=== PATIENT | male | born 1990 | race Two or more races ===

== ENCOUNTER 2019-01-28 11:57 | Inpatient (IN) | payer OTHER ==
[~2019-01-28] VITALS: Ht 157.5 cm; Wt 68.2 kg
[2019-01-28 12:18] LABS: BILIRUBIN,URINE SMALL (NEG); CLARITY,URINE CLEAR; COLOR,URINE AMBER; NITRITE,URINE NEGATIVE (NEG); PROTEIN,URINE 30 mg/dL (NEG-TRACE); UROBILINOGEN,URINE 0.2 mg/dL (0.2 mg/dL)
[2019-01-28 12:24] LABS: BASO % 1 % (0-3); EOS % 0 % (0-3); HEMATOCRIT 46.4 % (39.0-53.0); HEMOGLOBIN 16.1 g/dL (13.0-17.5); LYMPH % 28 % (24-48); MEAN CORPUSCULAR HEMOGLOBIN 29 pg (25-35); MEAN CORPUSCULAR HGB CONC 35 g/dL (31-37); MEAN CORPUSCULAR VOLUME 82 fL (79-100); MONO # 0.5 x10^3/uL (0.0-1.1); MONO % 14 % (0-9); NEUT % 58 % (31-73); PLATELET COUNT 114 x10^3/uL (140-400); RED BLOOD COUNT 5.66 x10^6/uL (4.30-5.70); RED CELL DISTRIBUTION WIDTH 12.5 % (11.5-14.5); WHITE BLOOD COUNT 3.5 x10^3/uL (4.0-11.0)
--- NOTE | 2019-01-28 12:27 | PHYS DOC ---
Past Medical History Past Medical History: No Pertinent History Past Surgical History: No Surgical History Alcohol Use: Occasionally Drug Use: None Adult General Chief Complaint Chief Complaint: ABDOMINAL PAIN HPI HPI Patient is a 28 year old male presented to ER today for evaluation of right lower abdominal pain for 4 days. HE does feel weak, he had not eaten anything today. Patient denies any fever. Patient denies any nausea vomiting. he had no previous history of kidney stone, he had no operation. Patient is not allergic to anything. Patient is not on medication Review of Systems Review of Systems Constitutional: Denies fever or chills [] Eyes: Denies change in visual acuity, redness, or eye pain [] HENT: Denies nasal congestion or sore throat [] Respiratory: Denies cough or shortness of breath [] Cardiovascular: No additional information not addressed in HPI [] GI: Positive for abdominal pain, NO nausea, vomiting, bloody stools or diarrhea [] : Denies dysuria or hematuria [] Musculoskeletal: Denies back pain or joint pain [] Integument: Denies rash or skin lesions [] Neurologic: Denies headache, focal weakness or sensory changes [] Endocrine: Denies polyuria or polydipsia [] All other systems were reviewed and found to be within normal limits, except as documented in this note. Current Medications Current Medications Current Medications Medications (Trade) Dose Ordered Sig/Nancy Start Time Stop Time Status Last Admin Dose Admin Info (CONTRAST GIVEN -- Rx MONITORING) 1 each PRN DAILY PRN 01/28/19 13:00 01/30/19 12:59 Iohexol (Omnipaque 300 Mg/ml) 75 ml 1X ONCE 01/28/19 12:45 01/28/19 12:46 DC 01/28/19 12:56 75 ML Piperacillin Sod/ Tazobactam Sod 3.375 gm/Sodium Chloride 50 ml @ 100 mls/hr 1X ONCE 01/28/19 12:30 01/28/19 12:59 DC 01/28/19 12:42 100 MLS/HR Sodium Chloride 1,000 ml @ 1,000 mls/hr 1X ONCE 01/28/19 12:45 01/28/19 13:44 DC 01/28/19 12:44 1,000 MLS/HR Allergies Allergies Allergies Coded Allergies Type Severity Reaction Last Updated Verified No Known Drug Allergies 01/28/19 No Physical Exam Physical Exam Constitutional: Well developed, well nourished, no acute distress, non-toxic appearance. [] HENT: Normocephalic, atraumatic, bilateral external ears normal, oropharynx moist, no oral exudates, nose normal. [] Eyes: PERRLA, EOMI, conjunctiva normal, no discharge. [] Neck: Normal range of motion, no tenderness, supple, no stridor. [] Cardiovascular:Heart rate regular rhythm, no murmur [] Lungs & Thorax: Bilateral breath sounds clear to auscultation [] Abdomen: Bowel sounds normal, soft, There is tenderness to palpation periumbilical area, RLQ and suprapubic area, no masses, no pulsatile masses. [] Skin: Warm, dry, no erythema, no rash. [] Back: No tenderness, no CVA tenderness. [] Extremities: No tenderness, no cyanosis, no clubbing, ROM intact, no edema. [] Neurologic: Alert and oriented X 3, normal motor function, normal sensory function, no focal deficits noted. [] Psychologic: Affect normal, judgement normal, mood normal. [] Current Patient Data Vital Signs Vital Signs Date Time Temp Pulse Resp B/P (MAP) Pulse Ox O2 Delivery O2 Flow Rate FiO2 01/28/19 12:58 92 110/64 (79) 99 Room Air 01/28/19 12:18 99.1 18 99.1 Lab Values Laboratory Tests Test 01/28/19 12:10 01/28/19 12:12 Urine Collection Type Unknown Urine Color Genevieve Urine Clarity Clear Urine pH 6.0 Urine Specific [place] >=1.030 Urine Protein 30 mg/dL (NEG-TRACE) Urine Glucose (UA) Negative mg/dL (NEG) Urine Ketones (Stick) >=80 mg/dL (NEG) Urine Blood Negative (NEG) Urine Nitrite Negative (NEG) Urine Bilirubin Small (NEG) Urine Urobilinogen Dipstick 0.2 mg/dL (0.2 mg/dL) Urine Leukocyte Esterase Negative (NEG) Urine RBC 0 /HPF (0-2) Urine WBC 0 /HPF (0-4) Urine Bacteria 0 /HPF (0-FEW) White Blood Count 3.5 x10^3/uL (4.0-11.0) L Red Blood Count 5.66 x10^6/uL (4.30-5.70) Hemoglobin 16.1 g/dL (13.0-17.5) Hematocrit 46.4 % (39.0-53.0) Mean Corpuscular Volume 82 fL (79-100) Mean Corpuscular Hemoglobin 29 pg (25-35) Mean Corpuscular Hemoglobin Concent 35 g/dL (31-37) Red Cell Distribution Width 12.5 % (11.5-14.5) Platelet Count 114 x10^3/uL (140-400) L Neutrophils (%) (Auto) 58 % (31-73) Lymphocytes (%) (Auto) 28 % (24-48) Monocytes (%) (Auto) 14 % (0-9) H Eosinophils (%) (Auto) 0 % (0-3) Basophils (%) (Auto) 1 % (0-3) Neutrophils # (Auto) 2.0 x10^3/uL (1.8-7.7) Lymphocytes # (Auto) 1.0 x10^3/uL (1.0-4.8) Monocytes # (Auto) 0.5 x10^3/uL (0.0-1.1) Eosinophils # (Auto) 0.0 x10^3/uL (0.0-0.7) Basophils # (Auto) 0.0 x10^3/uL (0.0-0.2) Sodium Level 137 mmol/L (136-145) Potassium Level 3.7 mmol/L (3.5-5.1) Chloride Level 98 mmol/L (98-107) Carbon Dioxide Level 28 mmol/L (21-32) Anion Gap 11 (6-14) Blood Urea Nitrogen 18 mg/dL (8-26) Creatinine 1.4 mg/dL (0.7-1.3) H Estimated GFR (Cockcroft-Gault) 60.8 BUN/Creatinine Ratio 13 (6-20) Glucose Level 82 mg/dL (70-99) Calcium Level 8.9 mg/dL (8.5-10.1) Total Bilirubin 1.0 mg/dL (0.2-1.0) Aspartate Amino Transferase (AST) 62 U/L (15-37) H Alanine Aminotransferase (ALT) 37 U/L (16-63) Alkaline Phosphatase 49 U/L (46-116) Total Protein 7.7 g/dL (6.4-8.2) Albumin 3.9 g/dL (3.4-5.0) Albumin/Globulin Ratio 1.0 (1.0-1.7) Lipase 97 U/L (73-393) Laboratory Tests 01/28/19 12:12 Laboratory Tests 01/28/19 12:12 EKG EKG [] Radiology/Procedures Radiology/Procedures [][facility] [address] [place] [address] IMAGING REPORT Signed PATIENT: RAMIRO PEREZ ACCOUNT: [id number] : 1990 LOCATION: ER AGE: 28 SEX: M EXAM STATUS: REG ER ORD. PHYSICIAN: ALAN AVILA DO REASON: RLQ ABDOMINAL PAIN FOR 4 DAYS PROCEDURE: CT ABD PELV W/ IV CONTRST ONLY PQRS Compliance statement: One or more of the following individualized dose reduction techniques were utilized for this examination: 1. Automated exposure control. 2. Adjustment of the mA and/or kV according to patient size. 3. Use of iterative reconstruction technique. Indication:Right lower quadrant abdominal pain for 4 days. TECHNIQUE: CT abdomen and pelvis with IV contrast with multiplanar reformats. COMPARISON: None FINDINGS: Heart is normal in size. No pericardial or pleural effusion. 3 mm subpleural nodule in left lower lobe. Liver, spleen, gallbladder, pancreas, adrenals and kidneys are within normal limits. Motion artifact is seen in the abdomen limiting optimal evaluation. No enlarged retroperitoneal or pelvic adenopathy. No free pelvic fluid or ascites. The prostate and seminal vesicles show no large mass. Appendix is not visualized. No right lower quadrant inflammatory changes. Mildly enlarged multiple mesenteric lymph nodes are seen for example right lower quadrant lymph nodes measuring 1.5 x 0.8 cm. Urinary bladder demonstrates no radiopaque stone. No pneumoperitoneum. No suspicious bony lesion. IMPRESSION: Limited exam due to motion artifact in the abdomen. 1. Appendix is not visualized but no right lower quadrant inflammatory changes. 2. Multiple prominent and mildly enlarged mesenteric and right lower quadrant lymph nodes, nonspecific may be reactive or from mesenteric adenitis. 3. No bowel obstruction. 4. Subpleural left lower quadrant nodule (3 mm). In a low risk patient no further follow-up needed. In a high-risk patient consider follow-up CT chest in one year. Electronically signed by: Rashawn Lara DO (01/28/2019 1:15 PM) [facility] DICTATED and SIGNED BY: RASHAWN LARA DO DATE: 01/28/19 1312 Course & Med Decision Making Course & Med Decision Making Pertinent Labs and Imaging studies reviewed. (See chart for details) [] Dragon Disclaimer Dragon Disclaimer This electronic medical record was generated, in whole or in part, using a voice recognition dictation system. Departure Departure Impression: Primary Impression: Abdominal pain Additional Impression: Dehydration Disposition: ADMITTED INPATIENT Admitting Physician: HIMS Condition: STABLE Referrals: UNKNOWN PCP NAME (PCP) Problem Qualifiers ALAN AVILA DO Jan 28, 2019 12:27
[2019-01-28 12:30] LABS: BACTERIA,URINE 0 /HPF (0-FEW); RBC,URINE 0 /HPF (0-2); WBC,URINE 0 /HPF (0-4)
[2019-01-28] MEDS ORDERED: IV NORMAL SALINE 1000ML BAG 1,000 ML IV ONE ×2 (12:30→12:45)
[2019-01-28] MEDS ORDERED: PIPERACILLIN/TAZOBACTAM 3.375 GM in IV NORMAL SALINE 50ML 50 ML IV ONE (12:30)
[2019-01-28 12:34] LABS: CALCIUM 8.9 mg/dL (8.5-10.1); CREATININE 1.4 mg/dL (0.7-1.3); GFR 60.8; POTASSIUM 3.7 mmol/L (3.5-5.1)
[2019-01-28] MEDS ORDERED: IOHEXOL 300 MG/ML 100ML VIAL. IV ONE (12:45)
[2019-01-28 12:48] LABS: ALBUMIN 3.9 g/dL (3.4-5.0); TOTAL PROTEIN 7.7 g/dL (6.4-8.2)
[2019-01-28] MEDS ORDERED: CONTRAST GIVEN. MC PRN (13:00)
--- NOTE | 2019-01-28 13:18 | RAD ---
PQRS Compliance statement: One or more of the following individualized dose reduction techniques were utilized for this examination: 1. Automated exposure control. 2. Adjustment of the mA and/or kV according to patient size. 3. Use of iterative reconstruction technique. Indication:Right lower quadrant abdominal pain for 4 days. TECHNIQUE: CT abdomen and pelvis with IV contrast with multiplanar reformats. COMPARISON: None FINDINGS: Heart is normal in size. No pericardial or pleural effusion. 3 mm subpleural nodule in left lower lobe. Liver, spleen, gallbladder, pancreas, adrenals and kidneys are within normal limits. Motion artifact is seen in the abdomen limiting optimal evaluation. No enlarged retroperitoneal or pelvic adenopathy. No free pelvic fluid or ascites. The prostate and seminal vesicles show no large mass. Appendix is not visualized. No right lower quadrant inflammatory changes. Mildly enlarged multiple mesenteric lymph nodes are seen for example right lower quadrant lymph nodes measuring 1.5 x 0.8 cm. Urinary bladder demonstrates no radiopaque stone. No pneumoperitoneum. No suspicious bony lesion. IMPRESSION: Limited exam due to motion artifact in the abdomen. 1. Appendix is not visualized but no right lower quadrant inflammatory changes. 2. Multiple prominent and mildly enlarged mesenteric and right lower quadrant lymph nodes, nonspecific may be reactive or from mesenteric adenitis. 3. No bowel obstruction. 4. Subpleural left lower quadrant nodule (3 mm). In a low risk patient no further follow-up needed. In a high-risk patient consider follow-up CT chest in one year. Electronically signed by: Rashawn Alfonso DO (01/28/2019 1:15 PM) [facility]
[2019-01-28] MEDS ORDERED: ONDANSETRON PF 4 MG/2 ML VIAL. IV PRN (15:00)
[2019-01-28 16:40] VITALS: BP 102/58
[2019-01-28] MEDS: IV NORMAL SALINE 1000ML BAG 1,000 ML IV SCH (16:57)
--- NOTE | 2019-01-28 17:14 | PDOC1 ---
History and Physical Date of Admission Date of Admission DATE: 01/28/19 TIME: 17:11 Identification/Chief Complaint Chief Complaint presented to ER today for evaluation of right lower abdominal pain for 4 days. HE does feel weak, he had not eaten anything today. Patient denies any fever. Patient denies any nausea vomiting. Past Medical History Past Medical History Past Medical History Past Medical History Past Medical History: No Pertinent History Past Surgical History: No Surgical History Alcohol Use: Occasionally Drug Use: None FAMILY HX HTN Social History Smoke: No ALCOHOL: none Drugs: None Current Problem List Problem List Problems Medical Problems: (1) Abdominal pain Status: Acute (2) Dehydration Status: Acute Current Medications Current Medications Current Medications Sodium Chloride 1,000 ml @ 1,000 mls/hr 1X ONCE IV Last administered on 01/28/19at 12:40; Start 01/28/19 at 12:30; Stop 01/28/19 at 13:29; Status DC Piperacillin Sod/ Tazobactam Sod 3.375 gm/Sodium Chloride 50 ml @ 100 mls/hr 1X ONCE IV Last administered on 01/28/19at 12:42; Start 01/28/19 at 12:30; Stop 01/28/19 at 12:59; Status DC Sodium Chloride 1,000 ml @ 1,000 mls/hr 1X ONCE IV Last administered on 01/28/19at 12:44; Start 01/28/19 at 12:45; Stop 01/28/19 at 13:44; Status DC Iohexol (Omnipaque 300 Mg/ml) 75 ml 1X ONCE IV Last administered on 01/28/19at 12:56; Start 01/28/19 at 12:45; Stop 01/28/19 at 12:46; Status DC Info (CONTRAST GIVEN -- Rx MONITORING) 1 each PRN DAILY PRN MC SEE COMMENTS; Start 01/28/19 at 13:00; Stop 01/30/19 at 12:59 Ondansetron HCl (Zofran) 4 mg PRN Q8HRS PRN IV NAUSEA/VOMITING; Start 01/28/19 at 15:00; Stop 01/29/19 at 14:59 Morphine Sulfate (Morphine Sulfate) 2 mg PRN Q2HR PRN IV PAIN; Start 01/28/19 at 15:00; Stop 01/29/19 at 14:59 Sodium Chloride 1,000 ml @ 100 mls/hr Q10H IV Last administered on 01/28/19at 16:57; Start 01/28/19 at 16:00; Stop 01/29/19 at 15:59 Active Scripts Active Reported No Known Medications Prior To Admisstion (Info) Each 1 Each MC 1X Allergies Allergies: Coded Allergies: No Known Drug Allergies (Unverified , 01/28/19) ROS Review of System Review of Systems Review of Systems Constitutional: Denies fever or chills [] Eyes: Denies change in visual acuity, redness, or eye pain [] HENT: Denies nasal congestion or sore throat [] Respiratory: Denies cough or shortness of breath [] Cardiovascular: No additional information not addressed in HPI [] GI: Positive for abdominal pain, NO nausea, vomiting, bloody stools or diarrhea [] : Denies dysuria or hematuria [] Musculoskeletal: Denies back pain or joint pain [] Integument: Denies rash or skin lesions [] Neurologic: Denies headache, focal weakness or sensory changes [] Endocrine: Denies polyuria or polydipsia [] 14 PT systems were reviewed and found to be within normal limits, except as documented Cardiovascular: No Chest Pain, No Palpitations, No Orthopnea, No Paroxysmal Noc. Dyspnea, No Edema, No Lt Headedness, No Other Gastrointestinal: Yes Abdominal Pain Neurological: No Behavorial Changes, No Bowel/Bladder ControlChng, No Confusion, No Dizziness, No Gait Disturbance, No Headaches, No Impaired Coord/balance, No Memory Loss, No Numbness/Tingling, No Seizures, No Speech Problems, No Tremors, No Visual Changes, No Weakness, No Other Physical Exam Physical Exam Physical Exam Physical Exam Constitutional: Well developed, well nourished, no acute distress, non-toxic appearance. [] HENT: Normocephalic, atraumatic, bilateral external ears normal, oropharynx moist, no oral exudates, nose normal. [] Eyes: PERRLA, EOMI, conjunctiva normal, no discharge. [] Neck: Normal range of motion, no tenderness, supple, no stridor. [] Cardiovascular:Heart rate regular rhythm, no murmur [] Lungs & Thorax: Bilateral breath sounds clear to auscultation [] Abdomen: Bowel sounds normal, soft, There is tenderness to palpation periumbilical area, RLQ and suprapubic area, no masses, no pulsatile masses. [] Skin: Warm, dry, no erythema, no rash. [] Back: No tenderness, no CVA tenderness. [] Extremities: No tenderness, no cyanosis, no clubbing, ROM intact, no edema. [] Neurologic: Alert and oriented X 3, normal motor function, normal sensory function, no focal deficits noted. [] Psychologic: Affect normal, judgement normal, mood normal. [] General: Alert, Oriented X3 Heart: RRR Abdomen: Normal bowel sounds Rectal Exam: not examined Extremities: No cyanosis Neuro: Normal speech, Cranial nerves 3-12 NL Psych/Mental Status: Mental status NL, Mood NL Vitals Vitals Vital Signs Date Time Temp Pulse Resp B/P (MAP) Pulse Ox O2 Delivery O2 Flow Rate FiO2 01/28/19 16:40 98.6 76 20 102/58 (73) 97 Room Air 98.6 Labs Labs Laboratory Tests Test 01/28/19 12:10 01/28/19 12:12 Urine Collection Type Unknown Urine Color Genevieve Urine Clarity Clear Urine pH 6.0 Urine Specific [place] >=1.030 Urine Protein 30 mg/dL (NEG-TRACE) Urine Glucose (UA) Negative mg/dL (NEG) Urine Ketones (Stick) >=80 mg/dL (NEG) Urine Blood Negative (NEG) Urine Nitrite Negative (NEG) Urine Bilirubin Small (NEG) Urine Urobilinogen Dipstick 0.2 mg/dL (0.2 mg/dL) Urine Leukocyte Esterase Negative (NEG) Urine RBC 0 /HPF (0-2) Urine WBC 0 /HPF (0-4) Urine Bacteria 0 /HPF (0-FEW) White Blood Count 3.5 x10^3/uL (4.0-11.0) Red Blood Count 5.66 x10^6/uL (4.30-5.70) Hemoglobin 16.1 g/dL (13.0-17.5) Hematocrit 46.4 % (39.0-53.0) Mean Corpuscular Volume 82 fL (79-100) Mean Corpuscular Hemoglobin 29 pg (25-35) Mean Corpuscular Hemoglobin Concent 35 g/dL (31-37) Red Cell Distribution Width 12.5 % (11.5-14.5) Platelet Count 114 x10^3/uL (140-400) Neutrophils (%) (Auto) 58 % (31-73) Lymphocytes (%) (Auto) 28 % (24-48) Monocytes (%) (Auto) 14 % (0-9) Eosinophils (%) (Auto) 0 % (0-3) Basophils (%) (Auto) 1 % (0-3) Neutrophils # (Auto) 2.0 x10^3/uL (1.8-7.7) Lymphocytes # (Auto) 1.0 x10^3/uL (1.0-4.8) Monocytes # (Auto) 0.5 x10^3/uL (0.0-1.1) Eosinophils # (Auto) 0.0 x10^3/uL (0.0-0.7) Basophils # (Auto) 0.0 x10^3/uL (0.0-0.2) Sodium Level 137 mmol/L (136-145) Potassium Level 3.7 mmol/L (3.5-5.1) Chloride Level 98 mmol/L (98-107) Carbon Dioxide Level 28 mmol/L (21-32) Anion Gap 11 (6-14) Blood Urea Nitrogen 18 mg/dL (8-26) Creatinine 1.4 mg/dL (0.7-1.3) Estimated GFR (Cockcroft-Gault) 60.8 BUN/Creatinine Ratio 13 (6-20) Glucose Level 82 mg/dL (70-99) Calcium Level 8.9 mg/dL (8.5-10.1) Total Bilirubin 1.0 mg/dL (0.2-1.0) Aspartate Amino Transf (AST/SGOT) 62 U/L (15-37) Alanine Aminotransferase (ALT/SGPT) 37 U/L (16-63) Alkaline Phosphatase 49 U/L (46-116) Total Protein 7.7 g/dL (6.4-8.2) Albumin 3.9 g/dL (3.4-5.0) Albumin/Globulin Ratio 1.0 (1.0-1.7) Lipase 97 U/L (73-393) Laboratory Tests Test 01/28/19 12:10 01/28/19 12:12 Urine Collection Type Unknown Urine Color Genevieve Urine Clarity Clear Urine pH 6.0 Urine Specific [place] >=1.030 Urine Protein 30 mg/dL (NEG-TRACE) Urine Glucose (UA) Negative mg/dL (NEG) Urine Ketones (Stick) >=80 mg/dL (NEG) Urine Blood Negative (NEG) Urine Nitrite Negative (NEG) Urine Bilirubin Small (NEG) Urine Urobilinogen Dipstick 0.2 mg/dL (0.2 mg/dL) Urine Leukocyte Esterase Negative (NEG) Urine RBC 0 /HPF (0-2) Urine WBC 0 /HPF (0-4) Urine Bacteria 0 /HPF (0-FEW) White Blood Count 3.5 x10^3/uL (4.0-11.0) Red Blood Count 5.66 x10^6/uL (4.30-5.70) Hemoglobin 16.1 g/dL (13.0-17.5) Hematocrit 46.4 % (39.0-53.0) Mean Corpuscular Volume 82 fL (79-100) Mean Corpuscular Hemoglobin 29 pg (25-35) Mean Corpuscular Hemoglobin Concent 35 g/dL (31-37) Red Cell Distribution Width 12.5 % (11.5-14.5) Platelet Count 114 x10^3/uL (140-400) Neutrophils (%) (Auto) 58 % (31-73) Lymphocytes (%) (Auto) 28 % (24-48) Monocytes (%) (Auto) 14 % (0-9) Eosinophils (%) (Auto) 0 % (0-3) Basophils (%) (Auto) 1 % (0-3) Neutrophils # (Auto) 2.0 x10^3/uL (1.8-7.7) Lymphocytes # (Auto) 1.0 x10^3/uL (1.0-4.8) Monocytes # (Auto) 0.5 x10^3/uL (0.0-1.1) Eosinophils # (Auto) 0.0 x10^3/uL (0.0-0.7) Basophils # (Auto) 0.0 x10^3/uL (0.0-0.2) Sodium Level 137 mmol/L (136-145) Potassium Level 3.7 mmol/L (3.5-5.1) Chloride Level 98 mmol/L (98-107) Carbon Dioxide Level 28 mmol/L (21-32) Anion Gap 11 (6-14) Blood Urea Nitrogen 18 mg/dL (8-26) Creatinine 1.4 mg/dL (0.7-1.3) Estimated GFR (Cockcroft-Gault) 60.8 BUN/Creatinine Ratio 13 (6-20) Glucose Level 82 mg/dL (70-99) Calcium Level 8.9 mg/dL (8.5-10.1) Total Bilirubin 1.0 mg/dL (0.2-1.0) Aspartate Amino Transf (AST/SGOT) 62 U/L (15-37) Alanine Aminotransferase (ALT/SGPT) 37 U/L (16-63) Alkaline Phosphatase 49 U/L (46-116) Total Protein 7.7 g/dL (6.4-8.2) Albumin 3.9 g/dL (3.4-5.0) Albumin/Globulin Ratio 1.0 (1.0-1.7) Lipase 97 U/L (73-393) Images Images One or more of the following individualized dose reduction techniques were utilized for this examination: 1. Automated exposure control. 2. Adjustment of the mA and/or kV according to patient size. 3. Use of iterative reconstruction technique. Indication:Right lower quadrant abdominal pain for 4 days. TECHNIQUE: CT abdomen and pelvis with IV contrast with multiplanar reformats. COMPARISON: None FINDINGS: Heart is normal in size. No pericardial or pleural effusion. 3 mm subpleural nodule in left lower lobe. Liver, spleen, gallbladder, pancreas, adrenals and kidneys are within normal limits. Motion artifact is seen in the abdomen limiting optimal evaluation. No enlarged retroperitoneal or pelvic adenopathy. No free pelvic fluid or ascites. The prostate and seminal vesicles show no large mass. Appendix is not visualized. No right lower quadrant inflammatory changes. Mildly enlarged multiple mesenteric lymph nodes are seen for example right lower quadrant lymph nodes measuring 1.5 x 0.8 cm. Urinary bladder demonstrates no radiopaque stone. No pneumoperitoneum. No suspicious bony lesion. IMPRESSION: Limited exam due to motion artifact in the abdomen. 1. Appendix is not visualized but no right lower quadrant inflammatory changes. 2. Multiple prominent and mildly enlarged mesenteric and right lower quadrant lymph nodes, nonspecific may be reactive or from mesenteric adenitis. 3. No bowel obstruction. 4. Subpleural left lower quadrant nodule (3 mm). In a low risk patient no further follow-up needed. In a high-risk patient consider follow-up CT chest in one year. Electronically signed by: Rashawn Alfonso DO (01/28/2019 1:15 PM) [facility] VTE Prophylaxis Ordered VTE Prophylaxis Devices: Yes VTE Pharmacological Prophylaxi: Yes Assessment/Plan Assessment/Plan IMPRESSION 1. Appendix is not visualized but no right lower quadrant inflammatory changes.ON CT rlq pain noted in ER 2. enlarged mesenteric and right lower quadrant lymph nodes, nonspecific/// mesenteric adenitis. 3. No bowel obstruction. PLAN ADMIT SERIAL EXAMS surg consult npo iv fluid support DVT PROPHYLAXIS 64 MIN PT EXAM, CHART REVIEW, > 50% OF TIME SPENT WITH EXAM, CHART REVIEW, PT CARE COORDINATION JIMBO PETERS MD Jan 28, 2019 17:14
[2019-01-28] MEDS: MORPHINE SULFATE 2 MG/ML VIAL. IV PRN (17:53)
[2019-01-28 19:00] VITALS: BP 112/80
[2019-01-28] MEDS: ENOXAPARIN 40 MG/0.4 ML SYRINGE. SQ SCH (21:07)
[2019-01-28 23:00] VITALS: BP 107/60
[2019-01-29] MEDS: MORPHINE SULFATE 2 MG/ML VIAL. IV PRN ×2 (00:47→06:29)
[2019-01-29] MEDS: IV NORMAL SALINE 1000ML BAG 1,000 ML IV SCH ×2 (02:00→10:57)
[2019-01-29 03:00] VITALS: BP 99/54
[2019-01-29 07:00] VITALS: BP 96/58
[2019-01-29] MEDS ORDERED: ACETAMINOPHEN 325 MG TABLET. PO ONE (09:00)
--- NOTE | 2019-01-29 09:00 | PDOC2 ---
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 Reports 5 days of abdominal pain. Pain is diffuse, greatest around periumbilical. No emesis. Reports some chills. Reports constipation, very small stool yesterday. Low appetite, eating seems to aggravate pain. Currently pain improved with medication No similar pain in past Past Medical History Past Medical History no pertinent hx Past Surgical History Past Surgical History: Other (testicular surgery as a child ) Family History Family History: Other (noncontributory to current illness ) Social History No ALCOHOL: other (3-4 beers on the weekend ) Drugs: None Current Problem List Problem List Problems Medical Problems: (1) Abdominal pain Status: Acute (2) Dehydration Status: Acute Current Medications Current Medications Current Medications Sodium Chloride 1,000 ml @ 1,000 mls/hr 1X ONCE IV Last administered on 01/28/19at 12:40; Start 01/28/19 at 12:30; Stop 01/28/19 at 13:29; Status DC Piperacillin Sod/ Tazobactam Sod 3.375 gm/Sodium Chloride 50 ml @ 100 mls/hr 1X ONCE IV Last administered on 01/28/19at 12:42; Start 01/28/19 at 12:30; Stop 01/28/19 at 12:59; Status DC Sodium Chloride 1,000 ml @ 1,000 mls/hr 1X ONCE IV Last administered on 01/28/19at 12:44; Start 01/28/19 at 12:45; Stop 01/28/19 at 13:44; Status DC Iohexol (Omnipaque 300 Mg/ml) 75 ml 1X ONCE IV Last administered on 01/28/19at 12:56; Start 01/28/19 at 12:45; Stop 01/28/19 at 12:46; Status DC Info (CONTRAST GIVEN -- Rx MONITORING) 1 each PRN DAILY PRN MC SEE COMMENTS; Start 01/28/19 at 13:00; Stop 01/30/19 at 12:59 Ondansetron HCl (Zofran) 4 mg PRN Q8HRS PRN IV NAUSEA/VOMITING; Start 01/28/19 at 15:00; Stop 01/29/19 at 14:59 Morphine Sulfate (Morphine Sulfate) 2 mg PRN Q2HR PRN IV PAIN Last administered on 01/29/19at 06:29; Start 01/28/19 at 15:00; Stop 01/29/19 at 14:59 Sodium Chloride 1,000 ml @ 100 mls/hr Q10H IV Last administered on 01/29/19at 02:00; Start 01/28/19 at 16:00; Stop 01/29/19 at 15:59 Enoxaparin Sodium (Lovenox 40mg Syringe) 40 mg Q24H SQ Last administered on 01/28/19at 21:07; Start 01/28/19 at 21:00 Active Scripts Active Reported No Known Medications Prior To Admisstion (Info) Each 1 Each MC 1X Allergies Allergies: Coded Allergies: No Known Drug Allergies (Unverified , 01/28/19) ROS General: YES: Chills, Night Sweats PSYCHOLOGICAL ROS: No: Anxiety, Depression Eyes: No Blurry vision, No Double vision HEENT: YES: Heacaches, Sore Throat Hematological and Lymphatic: No: Bleeding Problems, Blood Clots Respiratory: No: Cough, Shortness of breath Cardiovascular: No Chest Pain, No Palpitations Gastrointestinal: Yes Other (see hpi) Genitourinary: No Dysuria, No Hematuria Musculoskeletal: No Joint Pain, No Muscle Pain Neurological: No Confusion, No Impaired Coord/balance Skin: No Pruritus, No Rash Physical Exam General: Alert, Oriented X3, Cooperative, No acute distress HEENT: PERRLA, Mucous membr. moist/pink Lungs: Clear to auscultation, Normal air movement Heart: Regular rate, Normal S1, Normal S2 Abdomen: Soft, Other (mild ttp lower abdomen, no guarding or rebound) Extremities: No clubbing, No cyanosis Skin: No rashes, No breakdown Neuro: Normal gait, Normal speech Psych/Mental Status: Mental status NL, Mood NL MUSCULOSKELETAL: No deformity, No swelling Vitals VITALS Vital Signs Date Time Temp Pulse Resp B/P (MAP) Pulse Ox O2 Delivery O2 Flow Rate FiO2 01/29/19 07:26 Room Air 01/29/19 07:24 95 01/29/19 07:00 102.0 92 16 96/58 (71) 102.0 Labs Labs Laboratory Tests Test 01/28/19 12:10 01/28/19 12:12 Urine Collection Type Unknown Urine Color Genevieve Urine Clarity Clear Urine pH 6.0 Urine Specific [place] >=1.030 Urine Protein 30 mg/dL (NEG-TRACE) Urine Glucose (UA) Negative mg/dL (NEG) Urine Ketones (Stick) >=80 mg/dL (NEG) Urine Blood Negative (NEG) Urine Nitrite Negative (NEG) Urine Bilirubin Small (NEG) Urine Urobilinogen Dipstick 0.2 mg/dL (0.2 mg/dL) Urine Leukocyte Esterase Negative (NEG) Urine RBC 0 /HPF (0-2) Urine WBC 0 /HPF (0-4) Urine Bacteria 0 /HPF (0-FEW) White Blood Count 3.5 x10^3/uL (4.0-11.0) Red Blood Count 5.66 x10^6/uL (4.30-5.70) Hemoglobin 16.1 g/dL (13.0-17.5) Hematocrit 46.4 % (39.0-53.0) Mean Corpuscular Volume 82 fL (79-100) Mean Corpuscular Hemoglobin 29 pg (25-35) Mean Corpuscular Hemoglobin Concent 35 g/dL (31-37) Red Cell Distribution Width 12.5 % (11.5-14.5) Platelet Count 114 x10^3/uL (140-400) Neutrophils (%) (Auto) 58 % (31-73) Lymphocytes (%) (Auto) 28 % (24-48) Monocytes (%) (Auto) 14 % (0-9) Eosinophils (%) (Auto) 0 % (0-3) Basophils (%) (Auto) 1 % (0-3) Neutrophils # (Auto) 2.0 x10^3/uL (1.8-7.7) Lymphocytes # (Auto) 1.0 x10^3/uL (1.0-4.8) Monocytes # (Auto) 0.5 x10^3/uL (0.0-1.1) Eosinophils # (Auto) 0.0 x10^3/uL (0.0-0.7) Basophils # (Auto) 0.0 x10^3/uL (0.0-0.2) Sodium Level 137 mmol/L (136-145) Potassium Level 3.7 mmol/L (3.5-5.1) Chloride Level 98 mmol/L (98-107) Carbon Dioxide Level 28 mmol/L (21-32) Anion Gap 11 (6-14) Blood Urea Nitrogen 18 mg/dL (8-26) Creatinine 1.4 mg/dL (0.7-1.3) Estimated GFR (Cockcroft-Gault) 60.8 BUN/Creatinine Ratio 13 (6-20) Glucose Level 82 mg/dL (70-99) Calcium Level 8.9 mg/dL (8.5-10.1) Total Bilirubin 1.0 mg/dL (0.2-1.0) Aspartate Amino Transf (AST/SGOT) 62 U/L (15-37) Alanine Aminotransferase (ALT/SGPT) 37 U/L (16-63) Alkaline Phosphatase 49 U/L (46-116) Total Protein 7.7 g/dL (6.4-8.2) Albumin 3.9 g/dL (3.4-5.0) Albumin/Globulin Ratio 1.0 (1.0-1.7) Lipase 97 U/L (73-393) Laboratory Tests Test 01/28/19 12:10 01/28/19 12:12 Urine Collection Type Unknown Urine Color Genevieve Urine Clarity Clear Urine pH 6.0 Urine Specific [place] >=1.030 Urine Protein 30 mg/dL (NEG-TRACE) Urine Glucose (UA) Negative mg/dL (NEG) Urine Ketones (Stick) >=80 mg/dL (NEG) Urine Blood Negative (NEG) Urine Nitrite Negative (NEG) Urine Bilirubin Small (NEG) Urine Urobilinogen Dipstick 0.2 mg/dL (0.2 mg/dL) Urine Leukocyte Esterase Negative (NEG) Urine RBC 0 /HPF (0-2) Urine WBC 0 /HPF (0-4) Urine Bacteria 0 /HPF (0-FEW) White Blood Count 3.5 x10^3/uL (4.0-11.0) Red Blood Count 5.66 x10^6/uL (4.30-5.70) Hemoglobin 16.1 g/dL (13.0-17.5) Hematocrit 46.4 % (39.0-53.0) Mean Corpuscular Volume 82 fL (79-100) Mean Corpuscular Hemoglobin 29 pg (25-35) Mean Corpuscular Hemoglobin Concent 35 g/dL (31-37) Red Cell Distribution Width 12.5 % (11.5-14.5) Platelet Count 114 x10^3/uL (140-400) Neutrophils (%) (Auto) 58 % (31-73) Lymphocytes (%) (Auto) 28 % (24-48) Monocytes (%) (Auto) 14 % (0-9) Eosinophils (%) (Auto) 0 % (0-3) Basophils (%) (Auto) 1 % (0-3) Neutrophils # (Auto) 2.0 x10^3/uL (1.8-7.7) Lymphocytes # (Auto) 1.0 x10^3/uL (1.0-4.8) Monocytes # (Auto) 0.5 x10^3/uL (0.0-1.1) Eosinophils # (Auto) 0.0 x10^3/uL (0.0-0.7) Basophils # (Auto) 0.0 x10^3/uL (0.0-0.2) Sodium Level 137 mmol/L (136-145) Potassium Level 3.7 mmol/L (3.5-5.1) Chloride Level 98 mmol/L (98-107) Carbon Dioxide Level 28 mmol/L (21-32) Anion Gap 11 (6-14) Blood Urea Nitrogen 18 mg/dL (8-26) Creatinine 1.4 mg/dL (0.7-1.3) Estimated GFR (Cockcroft-Gault) 60.8 BUN/Creatinine Ratio 13 (6-20) Glucose Level 82 mg/dL (70-99) Calcium Level 8.9 mg/dL (8.5-10.1) Total Bilirubin 1.0 mg/dL (0.2-1.0) Aspartate Amino Transf (AST/SGOT) 62 U/L (15-37) Alanine Aminotransferase (ALT/SGPT) 37 U/L (16-63) Alkaline Phosphatase 49 U/L (46-116) Total Protein 7.7 g/dL (6.4-8.2) Albumin 3.9 g/dL (3.4-5.0) Albumin/Globulin Ratio 1.0 (1.0-1.7) Lipase 97 U/L (73-393) Assessment/Plan Assessment/Plan abdominal pain WBC 3.5 CT did not visualize appendix, ? mesenteric adenitis Temp this AM 102 will review with GUSTAVO Vela MD 01/29/19 1023: CONSULT Assessment/Plan Assessment/Plan pt seen and examined suspect viral illness offer liquids today, follow temp if not improved in AM consider Dx l/s, appendectomy Thanks for consult YIFAN POLK APRN Jan 29, 2019 09:00 GUSTAVO KEATING MD Jan 29, 2019 10:23
[2019-01-29 10:15] LABS: BASO % 1 % (0-3); EOS % 0 % (0-3); HEMATOCRIT 39.7 % (39.0-53.0); LYMPH # 1.8 x10^3/uL (1.0-4.8); LYMPH % 48 % (24-48); MEAN CORPUSCULAR HEMOGLOBIN 29 pg (25-35); MEAN CORPUSCULAR HGB CONC 35 g/dL (31-37); MEAN CORPUSCULAR VOLUME 82 fL (79-100); MONO # 0.5 x10^3/uL (0.0-1.1); MONO % 14 % (0-9); NEUT # 1.4 x10^3/uL (1.8-7.7); NEUT % 38 % (31-73); PLATELET COUNT 121 x10^3/uL (140-400); RED BLOOD COUNT 4.84 x10^6/uL (4.30-5.70); RED CELL DISTRIBUTION WIDTH 12.6 % (11.5-14.5); WHITE BLOOD COUNT 3.8 x10^3/uL (4.0-11.0)
[2019-01-29 10:34] LABS: CALCIUM 7.7 mg/dL (8.5-10.1); CREATININE 1.1 mg/dL (0.7-1.3); GFR 80.3; POTASSIUM 3.5 mmol/L (3.5-5.1)
[2019-01-29 11:00] VITALS: BP 98/59
--- NOTE | 2019-01-29 12:57 | NUR ---
SS following for discharge planning. SS reviewed pt chart. Pt is from home and is currently on room air. No discharge needs noted at this time. SS will continue to follow for discharge planning.
--- NOTE | 2019-01-29 13:06 | PDOC ---
[employer] PROGRESS NOTE Chief Complaint Chief Complaint Right lower quadrant pain with abnormal imaging (mesenteric and right lower quadrant lymph node) Possible appendicitis History of Present Illness History of Present Illness [id number] Patient seen and examined Discussed with his RN and case management Reviewed the chart Vitals/I&O Vitals/I&O: Vital Signs Date Time Temp Pulse Resp B/P (MAP) Pulse Ox O2 Delivery O2 Flow Rate FiO2 01/29/19 11:00 98.4 77 18 98/59 (72) 96 Room Air 98.4 I & O 01/28/19 01/28/19 01/29/19 15:00 23:00 07:00 Intake Total 2050 ml Balance 2050 ml Physical Exam General: Alert, Oriented X3, Cooperative, No acute distress Heart: Regular rate, Normal S1, Normal S2 Lungs: Clear Abdomen: Soft, Other (mild ttp lower abdomen, no guarding or rebound) Extremities: No clubbing, No cyanosis Skin: No rashes, No breakdown Labs Labs: Laboratory Tests Test 01/29/19 09:15 01/29/19 09:25 Sodium Level 135 mmol/L (136-145) Potassium Level 3.5 mmol/L (3.5-5.1) Chloride Level 101 mmol/L (98-107) Carbon Dioxide Level 24 mmol/L (21-32) Anion Gap 10 (6-14) Blood Urea Nitrogen 11 mg/dL (8-26) Creatinine 1.1 mg/dL (0.7-1.3) Estimated GFR (Cockcroft-Gault) 80.3 Glucose Level 115 mg/dL (70-99) Calcium Level 7.7 mg/dL (8.5-10.1) White Blood Count 3.8 x10^3/uL (4.0-11.0) Red Blood Count 4.84 x10^6/uL (4.30-5.70) Hemoglobin 14.0 g/dL (13.0-17.5) Hematocrit 39.7 % (39.0-53.0) Mean Corpuscular Volume 82 fL (79-100) Mean Corpuscular Hemoglobin 29 pg (25-35) Mean Corpuscular Hemoglobin Concent 35 g/dL (31-37) Red Cell Distribution Width 12.6 % (11.5-14.5) Platelet Count 121 x10^3/uL (140-400) Neutrophils (%) (Auto) 38 % (31-73) Lymphocytes (%) (Auto) 48 % (24-48) Monocytes (%) (Auto) 14 % (0-9) Eosinophils (%) (Auto) 0 % (0-3) Basophils (%) (Auto) 1 % (0-3) Neutrophils # (Auto) 1.4 x10^3/uL (1.8-7.7) Lymphocytes # (Auto) 1.8 x10^3/uL (1.0-4.8) Monocytes # (Auto) 0.5 x10^3/uL (0.0-1.1) Eosinophils # (Auto) 0.0 x10^3/uL (0.0-0.7) Basophils # (Auto) 0.0 x10^3/uL (0.0-0.2) Assessment and Plan Assessmemt and Plan Problems Medical Problems: (1) Abdominal pain Status: Acute (2) Dehydration Status: Acut Right lower quadrant pain of undetermined etiology mesenteric and right lower quadrant lymph node Plan Recheck labs IV fluids When necessary narcotics DVT prophylaxis Full code Appreciate subspecialist input Comment Review of Relevant I have reviewed the following items raheem (where applicable) has been applied. Medications: Current Medications Medications (Trade) Dose Ordered Sig/Nancy Route PRN Reason Start Time Stop Time Status Last Admin Dose Admin Morphine Sulfate (Morphine Sulfate) 2 mg PRN Q2HR PRN IV PAIN 01/28/19 15:00 01/29/19 14:59 01/29/19 06:29 Sodium Chloride 1,000 ml @ 100 mls/hr Q10H IV 01/28/19 16:00 01/29/19 15:59 01/29/19 10:57 Enoxaparin Sodium (Lovenox 40mg Syringe) 40 mg Q24H SQ 01/28/19 21:00 01/28/19 21:07 Acetaminophen (Tylenol) 650 mg 1X ONCE PO 01/29/19 09:00 01/29/19 09:12 DC 01/29/19 09:19 CLAUDE KYLE III DO Jan 29, 2019 13:06
[2019-01-29 14:47] VITALS: BP 97/58
[2019-01-29 19:15] VITALS: BP 97/57
[2019-01-29] MEDS: ENOXAPARIN 40 MG/0.4 ML SYRINGE. SQ SCH (21:17)
[2019-01-29] MEDS ORDERED: MORPHINE SULFATE 2 MG/ML VIAL. IV PRN (22:00)
[2019-01-29] MEDS ORDERED: oxyCODONE/APAP 5/325 1 TAB TABLET PO PRN (22:00)
[2019-01-29] MEDS ORDERED: ACETAMINOPHEN 325 MG TABLET. PO PRN (22:00)
[2019-01-29] MEDS: oxyCODONE/APAP 5/325 1 TAB TABLET PO PRN (22:08)
[2019-01-29 23:27] VITALS: BP 109/61
[2019-01-30 03:29] VITALS: BP 94/55
[2019-01-30 05:57] LABS: BASO % 1 % (0-3); EOS # 0.1 x10^3/uL (0.0-0.7); EOS % 1 % (0-3); HEMATOCRIT 37.8 % (39.0-53.0); HEMOGLOBIN 13.5 g/dL (13.0-17.5); LYMPH # 2.4 x10^3/uL (1.0-4.8); LYMPH % 57 % (24-48); MEAN CORPUSCULAR HEMOGLOBIN 29 pg (25-35); MEAN CORPUSCULAR HGB CONC 36 g/dL (31-37); MEAN CORPUSCULAR VOLUME 81 fL (79-100); MONO # 0.6 x10^3/uL (0.0-1.1); MONO % 14 % (0-9); NEUT # 1.1 x10^3/uL (1.8-7.7); NEUT % 27 % (31-73); PLATELET COUNT 114 x10^3/uL (140-400); RED BLOOD COUNT 4.65 x10^6/uL (4.30-5.70); RED CELL DISTRIBUTION WIDTH 12.3 % (11.5-14.5); WHITE BLOOD COUNT 4.2 x10^3/uL (4.0-11.0)
[2019-01-30 06:02] LABS: GFR 89.6; POTASSIUM 3.7 mmol/L (3.5-5.1)
[2019-01-30 07:00] VITALS: BP 106/70
[2019-01-30 07:28] LABS: % ATYL 1 % (0-0); % BANDS 25 % (0-9); % EOS 3 % (0-5); % LYMPHS 42 % (24-48); % METAS 4 % (0-0); % MONOS 3 % (0-10); % MYELOS 4 % (0-0); % SEGS 18 % (35-66); ANISOCYTOSIS SLIGHT; PLT ESTIMATE DECREASED (ADEQUATE)
--- NOTE | 2019-01-30 10:02 | PDOC ---
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 01/30/19 1002: SURGICAL PROGRESS NOTE Subjective pain was improved with pill last night currently pain of 4 Vital Signs Vital Signs Date Time Temp Pulse Resp B/P (MAP) Pulse Ox O2 Delivery O2 Flow Rate FiO2 01/30/19 07:23 Room Air 01/30/19 07:00 98.0 59 16 106/70 (82) 99 98.0 I&O Intake and Output 01/30/19 07:00 Intake Total 480 ml Balance 480 ml Intake Oral 480 ml # Voids 4 General: Alert, Oriented X3, Cooperative, No acute distress Abdomen: Soft, Other (ND, ttp mild periumbilical ) Labs Laboratory Tests Test 01/28/19 12:10 01/28/19 12:12 01/29/19 09:15 01/29/19 09:25 Urine Collection Type Unknown Urine Color Genevieve Urine Clarity Clear Urine pH 6.0 Urine Specific [place] >=1.030 Urine Protein 30 mg/dL (NEG-TRACE) Urine Glucose (UA) Negative mg/dL (NEG) Urine Ketones (Stick) >=80 mg/dL (NEG) Urine Blood Negative (NEG) Urine Nitrite Negative (NEG) Urine Bilirubin Small (NEG) Urine Urobilinogen Dipstick 0.2 mg/dL (0.2 mg/dL) Urine Leukocyte Esterase Negative (NEG) Urine RBC 0 /HPF (0-2) Urine WBC 0 /HPF (0-4) Urine Bacteria 0 /HPF (0-FEW) White Blood Count 3.5 x10^3/uL (4.0-11.0) 3.8 x10^3/uL (4.0-11.0) Red Blood Count 5.66 x10^6/uL (4.30-5.70) 4.84 x10^6/uL (4.30-5.70) Hemoglobin 16.1 g/dL (13.0-17.5) 14.0 g/dL (13.0-17.5) Hematocrit 46.4 % (39.0-53.0) 39.7 % (39.0-53.0) Mean Corpuscular Volume 82 fL (79-100) 82 fL (79-100) Mean Corpuscular Hemoglobin 29 pg (25-35) 29 pg (25-35) Mean Corpuscular Hemoglobin Concent 35 g/dL (31-37) 35 g/dL (31-37) Red Cell Distribution Width 12.5 % (11.5-14.5) 12.6 % (11.5-14.5) Platelet Count 114 x10^3/uL (140-400) 121 x10^3/uL (140-400) Neutrophils (%) (Auto) 58 % (31-73) 38 % (31-73) Lymphocytes (%) (Auto) 28 % (24-48) 48 % (24-48) Monocytes (%) (Auto) 14 % (0-9) 14 % (0-9) Eosinophils (%) (Auto) 0 % (0-3) 0 % (0-3) Basophils (%) (Auto) 1 % (0-3) 1 % (0-3) Neutrophils # (Auto) 2.0 x10^3/uL (1.8-7.7) 1.4 x10^3/uL (1.8-7.7) Lymphocytes # (Auto) 1.0 x10^3/uL (1.0-4.8) 1.8 x10^3/uL (1.0-4.8) Monocytes # (Auto) 0.5 x10^3/uL (0.0-1.1) 0.5 x10^3/uL (0.0-1.1) Eosinophils # (Auto) 0.0 x10^3/uL (0.0-0.7) 0.0 x10^3/uL (0.0-0.7) Basophils # (Auto) 0.0 x10^3/uL (0.0-0.2) 0.0 x10^3/uL (0.0-0.2) Sodium Level 137 mmol/L (136-145) 135 mmol/L (136-145) Potassium Level 3.7 mmol/L (3.5-5.1) 3.5 mmol/L (3.5-5.1) Chloride Level 98 mmol/L (98-107) 101 mmol/L (98-107) Carbon Dioxide Level 28 mmol/L (21-32) 24 mmol/L (21-32) Anion Gap 11 (6-14) 10 (6-14) Blood Urea Nitrogen 18 mg/dL (8-26) 11 mg/dL (8-26) Creatinine 1.4 mg/dL (0.7-1.3) 1.1 mg/dL (0.7-1.3) Estimated GFR (Cockcroft-Gault) 60.8 80.3 BUN/Creatinine Ratio 13 (6-20) Glucose Level 82 mg/dL (70-99) 115 mg/dL (70-99) Calcium Level 8.9 mg/dL (8.5-10.1) 7.7 mg/dL (8.5-10.1) Total Bilirubin 1.0 mg/dL (0.2-1.0) Aspartate Amino Transf (AST/SGOT) 62 U/L (15-37) Alanine Aminotransferase (ALT/SGPT) 37 U/L (16-63) Alkaline Phosphatase 49 U/L (46-116) Total Protein 7.7 g/dL (6.4-8.2) Albumin 3.9 g/dL (3.4-5.0) Albumin/Globulin Ratio 1.0 (1.0-1.7) Lipase 97 U/L (73-393) Test 01/30/19 05:10 White Blood Count 4.2 x10^3/uL (4.0-11.0) Red Blood Count 4.65 x10^6/uL (4.30-5.70) Hemoglobin 13.5 g/dL (13.0-17.5) Hematocrit 37.8 % (39.0-53.0) Mean Corpuscular Volume 81 fL (79-100) Mean Corpuscular Hemoglobin 29 pg (25-35) Mean Corpuscular Hemoglobin Concent 36 g/dL (31-37) Red Cell Distribution Width 12.3 % (11.5-14.5) Platelet Count 114 x10^3/uL (140-400) Neutrophils (%) (Auto) 27 % (31-73) Lymphocytes (%) (Auto) 57 % (24-48) Monocytes (%) (Auto) 14 % (0-9) Eosinophils (%) (Auto) 1 % (0-3) Basophils (%) (Auto) 1 % (0-3) Neutrophils # (Auto) 1.1 x10^3/uL (1.8-7.7) Lymphocytes # (Auto) 2.4 x10^3/uL (1.0-4.8) Monocytes # (Auto) 0.6 x10^3/uL (0.0-1.1) Eosinophils # (Auto) 0.1 x10^3/uL (0.0-0.7) Basophils # (Auto) 0.0 x10^3/uL (0.0-0.2) Segmented Neutrophils % 18 % (35-66) Band Neutrophils % 25 % (0-9) Lymphocytes % 42 % (24-48) Atypical Lymphocytes % (Manual) 1 % (0-0) Monocytes % 3 % (0-10) Eosinophils % 3 % (0-5) Metamyelocytes % 4 % (0-0) Myelocytes % 4 % (0-0) Platelet Estimate Decreased (ADEQUATE) Anisocytosis Slight Sodium Level 138 mmol/L (136-145) Potassium Level 3.7 mmol/L (3.5-5.1) Chloride Level 104 mmol/L (98-107) Carbon Dioxide Level 26 mmol/L (21-32) Anion Gap 8 (6-14) Blood Urea Nitrogen 8 mg/dL (8-26) Creatinine 1.0 mg/dL (0.7-1.3) Estimated GFR (Cockcroft-Gault) 89.6 Glucose Level 99 mg/dL (70-99) Calcium Level 8.0 mg/dL (8.5-10.1) Laboratory Tests Test 01/30/19 05:10 White Blood Count 4.2 x10^3/uL (4.0-11.0) Red Blood Count 4.65 x10^6/uL (4.30-5.70) Hemoglobin 13.5 g/dL (13.0-17.5) Hematocrit 37.8 % (39.0-53.0) Mean Corpuscular Volume 81 fL (79-100) Mean Corpuscular Hemoglobin 29 pg (25-35) Mean Corpuscular Hemoglobin Concent 36 g/dL (31-37) Red Cell Distribution Width 12.3 % (11.5-14.5) Platelet Count 114 x10^3/uL (140-400) Neutrophils (%) (Auto) 27 % (31-73) Lymphocytes (%) (Auto) 57 % (24-48) Monocytes (%) (Auto) 14 % (0-9) Eosinophils (%) (Auto) 1 % (0-3) Basophils (%) (Auto) 1 % (0-3) Neutrophils # (Auto) 1.1 x10^3/uL (1.8-7.7) Lymphocytes # (Auto) 2.4 x10^3/uL (1.0-4.8) Monocytes # (Auto) 0.6 x10^3/uL (0.0-1.1) Eosinophils # (Auto) 0.1 x10^3/uL (0.0-0.7) Basophils # (Auto) 0.0 x10^3/uL (0.0-0.2) Segmented Neutrophils % 18 % (35-66) Band Neutrophils % 25 % (0-9) Lymphocytes % 42 % (24-48) Atypical Lymphocytes % (Manual) 1 % (0-0) Monocytes % 3 % (0-10) Eosinophils % 3 % (0-5) Metamyelocytes % 4 % (0-0) Myelocytes % 4 % (0-0) Platelet Estimate Decreased (ADEQUATE) Anisocytosis Slight Sodium Level 138 mmol/L (136-145) Potassium Level 3.7 mmol/L (3.5-5.1) Chloride Level 104 mmol/L (98-107) Carbon Dioxide Level 26 mmol/L (21-32) Anion Gap 8 (6-14) Blood Urea Nitrogen 8 mg/dL (8-26) Creatinine 1.0 mg/dL (0.7-1.3) Estimated GFR (Cockcroft-Gault) 89.6 Glucose Level 99 mg/dL (70-99) Calcium Level 8.0 mg/dL (8.5-10.1) Problem List Problems Medical Problems: (1) Abdominal pain Status: Acute (2) Dehydration Status: Acute Assessment/Plan wbc normal minimal pain on exam afebrile will review with GUSTAVO Coto MD 01/30/19 1251: SURGICAL PROGRESS NOTE Assessment/Plan pt seen benign exam, labs, VS no surgical recs advance diet as tolerated Dr Barrett available to see over the weekend if needed YIFAN POLK APRN Jan 30, 2019 10:02 GUSTAVO KEATING MD Jan 30, 2019 12:51
[2019-01-30 11:00] VITALS: BP 105/69
[2019-01-30] MEDS: oxyCODONE/APAP 5/325 1 TAB TABLET PO PRN ×2 (12:00→22:44)
--- NOTE | 2019-01-30 12:10 | PDOC ---
PROGRESS NOTES Chief Complaint Chief Complaint Right lower quadrant pain with abnormal imaging (mesenteric and right lower quadrant lymph node) Possible appendicitis History of Present Illness History of Present Illness [id number] Patient seen and examined Discussed with his RN Reviewed the chart surgery following 26 min pt exam, chart review, > 50% of time spent with exam, chart review, pt care coordination Vitals Vitals Vital Signs Date Time Temp Pulse Resp B/P (MAP) Pulse Ox O2 Delivery O2 Flow Rate FiO2 01/30/19 12:00 95 Room Air 01/30/19 11:00 97.8 78 16 105/69 (81) 97.8 Physical Exam General: Alert, Oriented X3, Cooperative, No acute distress Heart: Regular rate, Normal S1, Normal S2 Lungs: Clear Abdomen: Normal bowel sounds, Soft, Other (ND, ttp mild periumbilical ) Extremities: No clubbing, No cyanosis Skin: No rashes, No breakdown Labs LABS Laboratory Tests Test 01/30/19 05:10 White Blood Count 4.2 x10^3/uL (4.0-11.0) Red Blood Count 4.65 x10^6/uL (4.30-5.70) Hemoglobin 13.5 g/dL (13.0-17.5) Hematocrit 37.8 % (39.0-53.0) Mean Corpuscular Volume 81 fL (79-100) Mean Corpuscular Hemoglobin 29 pg (25-35) Mean Corpuscular Hemoglobin Concent 36 g/dL (31-37) Red Cell Distribution Width 12.3 % (11.5-14.5) Platelet Count 114 x10^3/uL (140-400) Neutrophils (%) (Auto) 27 % (31-73) Lymphocytes (%) (Auto) 57 % (24-48) Monocytes (%) (Auto) 14 % (0-9) Eosinophils (%) (Auto) 1 % (0-3) Basophils (%) (Auto) 1 % (0-3) Neutrophils # (Auto) 1.1 x10^3/uL (1.8-7.7) Lymphocytes # (Auto) 2.4 x10^3/uL (1.0-4.8) Monocytes # (Auto) 0.6 x10^3/uL (0.0-1.1) Eosinophils # (Auto) 0.1 x10^3/uL (0.0-0.7) Basophils # (Auto) 0.0 x10^3/uL (0.0-0.2) Segmented Neutrophils % 18 % (35-66) Band Neutrophils % 25 % (0-9) Lymphocytes % 42 % (24-48) Atypical Lymphocytes % (Manual) 1 % (0-0) Monocytes % 3 % (0-10) Eosinophils % 3 % (0-5) Metamyelocytes % 4 % (0-0) Myelocytes % 4 % (0-0) Platelet Estimate Decreased (ADEQUATE) Anisocytosis Slight Sodium Level 138 mmol/L (136-145) Potassium Level 3.7 mmol/L (3.5-5.1) Chloride Level 104 mmol/L (98-107) Carbon Dioxide Level 26 mmol/L (21-32) Anion Gap 8 (6-14) Blood Urea Nitrogen 8 mg/dL (8-26) Creatinine 1.0 mg/dL (0.7-1.3) Estimated GFR (Cockcroft-Gault) 89.6 Glucose Level 99 mg/dL (70-99) Calcium Level 8.0 mg/dL (8.5-10.1) Assessment and Plan Assessmemt and Plan Problems Medical Problems: (1) Abdominal pain Status: Acute (2) Dehydration Status: Acute Comment Review of Relevant I have reviewed the following items raheem (where applicable) has been applied. Labs Laboratory Tests Test 01/28/19 12:12 01/29/19 09:15 01/29/19 09:25 01/30/19 05:10 White Blood Count 3.5 x10^3/uL (4.0-11.0) 3.8 x10^3/uL (4.0-11.0) 4.2 x10^3/uL (4.0-11.0) Red Blood Count 5.66 x10^6/uL (4.30-5.70) 4.84 x10^6/uL (4.30-5.70) 4.65 x10^6/uL (4.30-5.70) Hemoglobin 16.1 g/dL (13.0-17.5) 14.0 g/dL (13.0-17.5) 13.5 g/dL (13.0-17.5) Hematocrit 46.4 % (39.0-53.0) 39.7 % (39.0-53.0) 37.8 % (39.0-53.0) Mean Corpuscular Volume 82 fL (79-100) 82 fL (79-100) 81 fL (79-100) Mean Corpuscular Hemoglobin 29 pg (25-35) 29 pg (25-35) 29 pg (25-35) Mean Corpuscular Hemoglobin Concent 35 g/dL (31-37) 35 g/dL (31-37) 36 g/dL (31-37) Red Cell Distribution Width 12.5 % (11.5-14.5) 12.6 % (11.5-14.5) 12.3 % (11.5-14.5) Platelet Count 114 x10^3/uL (140-400) 121 x10^3/uL (140-400) 114 x10^3/uL (140-400) Neutrophils (%) (Auto) 58 % (31-73) 38 % (31-73) 27 % (31-73) Lymphocytes (%) (Auto) 28 % (24-48) 48 % (24-48) 57 % (24-48) Monocytes (%) (Auto) 14 % (0-9) 14 % (0-9) 14 % (0-9) Eosinophils (%) (Auto) 0 % (0-3) 0 % (0-3) 1 % (0-3) Basophils (%) (Auto) 1 % (0-3) 1 % (0-3) 1 % (0-3) Neutrophils # (Auto) 2.0 x10^3/uL (1.8-7.7) 1.4 x10^3/uL (1.8-7.7) 1.1 x10^3/uL (1.8-7.7) Lymphocytes # (Auto) 1.0 x10^3/uL (1.0-4.8) 1.8 x10^3/uL (1.0-4.8) 2.4 x10^3/uL (1.0-4.8) Monocytes # (Auto) 0.5 x10^3/uL (0.0-1.1) 0.5 x10^3/uL (0.0-1.1) 0.6 x10^3/uL (0.0-1.1) Eosinophils # (Auto) 0.0 x10^3/uL (0.0-0.7) 0.0 x10^3/uL (0.0-0.7) 0.1 x10^3/uL (0.0-0.7) Basophils # (Auto) 0.0 x10^3/uL (0.0-0.2) 0.0 x10^3/uL (0.0-0.2) 0.0 x10^3/uL (0.0-0.2) Sodium Level 137 mmol/L (136-145) 135 mmol/L (136-145) 138 mmol/L (136-145) Potassium Level 3.7 mmol/L (3.5-5.1) 3.5 mmol/L (3.5-5.1) 3.7 mmol/L (3.5-5.1) Chloride Level 98 mmol/L (98-107) 101 mmol/L (98-107) 104 mmol/L (98-107) Carbon Dioxide Level 28 mmol/L (21-32) 24 mmol/L (21-32) 26 mmol/L (21-32) Anion Gap 11 (6-14) 10 (6-14) 8 (6-14) Blood Urea Nitrogen 18 mg/dL (8-26) 11 mg/dL (8-26) 8 mg/dL (8-26) Creatinine 1.4 mg/dL (0.7-1.3) 1.1 mg/dL (0.7-1.3) 1.0 mg/dL (0.7-1.3) Estimated GFR (Cockcroft-Gault) 60.8 80.3 89.6 BUN/Creatinine Ratio 13 (6-20) Glucose Level 82 mg/dL (70-99) 115 mg/dL (70-99) 99 mg/dL (70-99) Calcium Level 8.9 mg/dL (8.5-10.1) 7.7 mg/dL (8.5-10.1) 8.0 mg/dL (8.5-10.1) Total Bilirubin 1.0 mg/dL (0.2-1.0) Aspartate Amino Transf (AST/SGOT) 62 U/L (15-37) Alanine Aminotransferase (ALT/SGPT) 37 U/L (16-63) Alkaline Phosphatase 49 U/L (46-116) Total Protein 7.7 g/dL (6.4-8.2) Albumin 3.9 g/dL (3.4-5.0) Albumin/Globulin Ratio 1.0 (1.0-1.7) Lipase 97 U/L (73-393) Segmented Neutrophils % 18 % (35-66) Band Neutrophils % 25 % (0-9) Lymphocytes % 42 % (24-48) Atypical Lymphocytes % (Manual) 1 % (0-0) Monocytes % 3 % (0-10) Eosinophils % 3 % (0-5) Metamyelocytes % 4 % (0-0) Myelocytes % 4 % (0-0) Platelet Estimate Decreased (ADEQUATE) Anisocytosis Slight Laboratory Tests Test 01/30/19 05:10 White Blood Count 4.2 x10^3/uL (4.0-11.0) Red Blood Count 4.65 x10^6/uL (4.30-5.70) Hemoglobin 13.5 g/dL (13.0-17.5) Hematocrit 37.8 % (39.0-53.0) Mean Corpuscular Volume 81 fL (79-100) Mean Corpuscular Hemoglobin 29 pg (25-35) Mean Corpuscular Hemoglobin Concent 36 g/dL (31-37) Red Cell Distribution Width 12.3 % (11.5-14.5) Platelet Count 114 x10^3/uL (140-400) Neutrophils (%) (Auto) 27 % (31-73) Lymphocytes (%) (Auto) 57 % (24-48) Monocytes (%) (Auto) 14 % (0-9) Eosinophils (%) (Auto) 1 % (0-3) Basophils (%) (Auto) 1 % (0-3) Neutrophils # (Auto) 1.1 x10^3/uL (1.8-7.7) Lymphocytes # (Auto) 2.4 x10^3/uL (1.0-4.8) Monocytes # (Auto) 0.6 x10^3/uL (0.0-1.1) Eosinophils # (Auto) 0.1 x10^3/uL (0.0-0.7) Basophils # (Auto) 0.0 x10^3/uL (0.0-0.2) Segmented Neutrophils % 18 % (35-66) Band Neutrophils % 25 % (0-9) Lymphocytes % 42 % (24-48) Atypical Lymphocytes % (Manual) 1 % (0-0) Monocytes % 3 % (0-10) Eosinophils % 3 % (0-5) Metamyelocytes % 4 % (0-0) Myelocytes % 4 % (0-0) Platelet Estimate Decreased (ADEQUATE) Anisocytosis Slight Sodium Level 138 mmol/L (136-145) Potassium Level 3.7 mmol/L (3.5-5.1) Chloride Level 104 mmol/L (98-107) Carbon Dioxide Level 26 mmol/L (21-32) Anion Gap 8 (6-14) Blood Urea Nitrogen 8 mg/dL (8-26) Creatinine 1.0 mg/dL (0.7-1.3) Estimated GFR (Cockcroft-Gault) 89.6 Glucose Level 99 mg/dL (70-99) Calcium Level 8.0 mg/dL (8.5-10.1) Medications Current Medications Sodium Chloride 1,000 ml @ 1,000 mls/hr 1X ONCE IV Last administered on 01/28/19at 12:40; Start 01/28/19 at 12:30; Stop 01/28/19 at 13:29; Status DC Piperacillin Sod/ Tazobactam Sod 3.375 gm/Sodium Chloride 50 ml @ 100 mls/hr 1X ONCE IV Last administered on 01/28/19at 12:42; Start 01/28/19 at 12:30; Stop 01/28/19 at 12:59; Status DC Sodium Chloride 1,000 ml @ 1,000 mls/hr 1X ONCE IV Last administered on 01/28/19at 12:44; Start 01/28/19 at 12:45; Stop 01/28/19 at 13:44; Status DC Iohexol (Omnipaque 300 Mg/ml) 75 ml 1X ONCE IV Last administered on 01/28/19at 12:56; Start 01/28/19 at 12:45; Stop 01/28/19 at 12:46; Status DC Info (CONTRAST GIVEN -- Rx MONITORING) 1 each PRN DAILY PRN MC SEE COMMENTS; Start 01/28/19 at 13:00; Stop 01/30/19 at 12:59 Ondansetron HCl (Zofran) 4 mg PRN Q8HRS PRN IV NAUSEA/VOMITING; Start 01/28/19 at 15:00; Stop 01/29/19 at 14:59; Status DC Morphine Sulfate (Morphine Sulfate) 2 mg PRN Q2HR PRN IV PAIN Last administered on 01/29/19at 06:29; Start 01/28/19 at 15:00; Stop 01/29/19 at 14:59; Status DC Sodium Chloride 1,000 ml @ 100 mls/hr Q10H IV Last administered on 01/29/19at 10:57; Start 01/28/19 at 16:00; Stop 01/29/19 at 15:59; Status DC Enoxaparin Sodium (Lovenox 40mg Syringe) 40 mg Q24H SQ Last administered on 01/29/19at 21:17; Start 01/28/19 at 21:00 Acetaminophen (Tylenol) 650 mg 1X ONCE PO Last administered on 01/29/19at 09:19; Start 01/29/19 at 09:00; Stop 01/29/19 at 09:12; Status DC Morphine Sulfate (Morphine Sulfate) 2 mg PRN Q2HR PRN IV SEVERE PAIN 7-10; Start 01/29/19 at 22:00 Oxycodone/ Acetaminophen (Percocet 5/325) 1 tab PRN Q4HRS PRN PO MODERATE PAIN 4-6; Start 01/29/19 at 22:00 Oxycodone/ Acetaminophen (Percocet 5/325) 2 tab PRN Q4HRS PRN PO SEVERE PAIN 7- 10 Last administered on 01/30/19at 12:00; Start 01/29/19 at 22:00 Acetaminophen (Tylenol) 650 mg PRN Q6HRS PRN PO headache; Start 01/29/19 at 22:00 Active Scripts Active Reported No Known Medications Prior To Admisstion (Info) Each 1 Each 1X Vitals/I & O Vital Sign - Last 24 Hours 01/29/19 01/29/19 01/29/19 01/29/19 14:47 19:15 20:00 22:08 Temp 98.1 98.4 98.1 98.4 Pulse 77 85 Resp 16 18 B/P (MAP) 97/58 (71) 97/57 (70) Pulse Ox 93 96 96 O2 Delivery Room Air Room Air Room Air Room Air 01/29/19 01/29/19 01/30/19 01/30/19 23:08 23:27 03:29 07:00 Temp 99.7 97.1 98.0 99.7 97.1 98.0 Pulse 80 72 59 Resp 18 18 16 B/P (MAP) 109/61 (77) 94/55 (68) 106/70 (82) Pulse Ox 96 96 94 99 O2 Delivery Room Air Room Air Room Air Room Air 01/30/19 01/30/19 01/30/19 07:23 11:00 12:00 Temp 97.8 97.8 Pulse 78 Resp 16 B/P (MAP) 105/69 (81) Pulse Ox 95 95 O2 Delivery Room Air Room Air Room Air Intake and Output 01/29/19 01/29/19 01/30/19 15:00 23:00 07:00 Intake Total 480 ml Balance 480 ml JIMBO PETERS MD Jan 30, 2019 12:10
[2019-01-30 15:00] VITALS: BP 100/59
[2019-01-30 16:35] LABS: BILIRUBIN,URINE NEGATIVE (NEG); CLARITY,URINE CLEAR; COLOR,URINE YELLOW; NITRITE,URINE NEGATIVE (NEG); PROTEIN,URINE NEGATIVE (NEG-TRACE); UROBILINOGEN,URINE 0.2 mg/dL (0.2 mg/dL)
[2019-01-30 16:42] LABS: BACTERIA,URINE 0 /HPF (0-FEW); RBC,URINE OCC /HPF (0-2); WBC,URINE OCC /HPF (0-4)
[2019-01-30 19:25] VITALS: BP 102/62
[2019-01-30] MEDS: ENOXAPARIN 40 MG/0.4 ML SYRINGE. SQ SCH (20:10)
[2019-01-30 23:20] VITALS: BP 94/58
[2019-01-31 03:25] VITALS: BP 100/62
[2019-01-31 05:42] LABS: BASO % 1 % (0-3); EOS # 0.1 x10^3/uL (0.0-0.7); EOS % 2 % (0-3); HEMATOCRIT 38.4 % (39.0-53.0); HEMOGLOBIN 13.6 g/dL (13.0-17.5); LYMPH # 3.3 x10^3/uL (1.0-4.8); LYMPH % 60 % (24-48); MEAN CORPUSCULAR HEMOGLOBIN 29 pg (25-35); MEAN CORPUSCULAR HGB CONC 36 g/dL (31-37); MEAN CORPUSCULAR VOLUME 82 fL (79-100); MONO # 0.4 x10^3/uL (0.0-1.1); MONO % 8 % (0-9); NEUT # 1.7 x10^3/uL (1.8-7.7); NEUT % 30 % (31-73); PLATELET COUNT 134 x10^3/uL (140-400); RED BLOOD COUNT 4.68 x10^6/uL (4.30-5.70); RED CELL DISTRIBUTION WIDTH 12.5 % (11.5-14.5); WHITE BLOOD COUNT 5.6 x10^3/uL (4.0-11.0)
[2019-01-31 06:16] LABS: CALCIUM 8.2 mg/dL (8.5-10.1); CREATININE 1.1 mg/dL (0.7-1.3); GFR 80.3; POTASSIUM 3.6 mmol/L (3.5-5.1)
[2019-01-31 07:00] VITALS: BP 116/74
--- NOTE | 2019-01-31 10:25 | PDOC ---
PROGRESS NOTES Chief Complaint Chief Complaint discharge dx Right lower quadrant pain with abnormal imaging (mesenteric and right lower quadrant lymph node) doubt appendicitis, suspect viral syndrome, resolved History of Present Illness History of Present Illness [id number] Patient seen and examined Discussed with his RN Reviewed the chart surgery following 26 min pt exam, chart review, > 50% of time spent with exam, chart review, pt care coordination Vitals Vitals Vital Signs Date Time Temp Pulse Resp B/P (MAP) Pulse Ox O2 Delivery O2 Flow Rate FiO2 01/31/19 08:00 Room Air 01/31/19 07:00 98.9 82 18 116/74 (88) 95 98.9 Physical Exam General: Alert, Oriented X3, Cooperative, No acute distress Heart: Regular rate, Normal S1, Normal S2, No murmurs Lungs: Clear Abdomen: Normal bowel sounds, Soft, No tenderness, No hepatosplenomegaly, Other (ND, ttp mild periumbilical ) Extremities: No clubbing, No cyanosis, No edema Skin: No rashes, No breakdown Labs LABS Laboratory Tests Test 01/30/19 16:00 01/31/19 04:00 Urine Collection Type Unknown Urine Color Yellow Urine Clarity Clear Urine pH 7.0 Urine Specific [place] 1.015 Urine Protein Negative mg/dL (NEG-TRACE) Urine Glucose (UA) Negative mg/dL (NEG) Urine Ketones (Stick) Negative mg/dL (NEG) Urine Blood Negative (NEG) Urine Nitrite Negative (NEG) Urine Bilirubin Negative (NEG) Urine Urobilinogen Dipstick 0.2 mg/dL (0.2 mg/dL) Urine Leukocyte Esterase Negative (NEG) Urine RBC Occ /HPF (0-2) Urine WBC Occ /HPF (0-4) Urine Bacteria 0 /HPF (0-FEW) Urine Mucus Slight /LPF White Blood Count 5.6 x10^3/uL (4.0-11.0) Red Blood Count 4.68 x10^6/uL (4.30-5.70) Hemoglobin 13.6 g/dL (13.0-17.5) Hematocrit 38.4 % (39.0-53.0) Mean Corpuscular Volume 82 fL (79-100) Mean Corpuscular Hemoglobin 29 pg (25-35) Mean Corpuscular Hemoglobin Concent 36 g/dL (31-37) Red Cell Distribution Width 12.5 % (11.5-14.5) Platelet Count 134 x10^3/uL (140-400) Neutrophils (%) (Auto) 30 % (31-73) Lymphocytes (%) (Auto) 60 % (24-48) Monocytes (%) (Auto) 8 % (0-9) Eosinophils (%) (Auto) 2 % (0-3) Basophils (%) (Auto) 1 % (0-3) Neutrophils # (Auto) 1.7 x10^3/uL (1.8-7.7) Lymphocytes # (Auto) 3.3 x10^3/uL (1.0-4.8) Monocytes # (Auto) 0.4 x10^3/uL (0.0-1.1) Eosinophils # (Auto) 0.1 x10^3/uL (0.0-0.7) Basophils # (Auto) 0.0 x10^3/uL (0.0-0.2) Sodium Level 139 mmol/L (136-145) Potassium Level 3.6 mmol/L (3.5-5.1) Chloride Level 103 mmol/L (98-107) Carbon Dioxide Level 27 mmol/L (21-32) Anion Gap 9 (6-14) Blood Urea Nitrogen 6 mg/dL (8-26) Creatinine 1.1 mg/dL (0.7-1.3) Estimated GFR (Cockcroft-Gault) 80.3 Glucose Level 94 mg/dL (70-99) Calcium Level 8.2 mg/dL (8.5-10.1) Assessment and Plan Assessmemt and Plan Problems Medical Problems: (1) Abdominal pain Status: Acute (2) Dehydration Status: Acute Comment Review of Relevant I have reviewed the following items raheem (where applicable) has been applied. Labs Laboratory Tests Test 01/30/19 05:10 01/30/19 16:00 01/31/19 04:00 White Blood Count 4.2 x10^3/uL (4.0-11.0) 5.6 x10^3/uL (4.0-11.0) Red Blood Count 4.65 x10^6/uL (4.30-5.70) 4.68 x10^6/uL (4.30-5.70) Hemoglobin 13.5 g/dL (13.0-17.5) 13.6 g/dL (13.0-17.5) Hematocrit 37.8 % (39.0-53.0) 38.4 % (39.0-53.0) Mean Corpuscular Volume 81 fL (79-100) 82 fL (79-100) Mean Corpuscular Hemoglobin 29 pg (25-35) 29 pg (25-35) Mean Corpuscular Hemoglobin Concent 36 g/dL (31-37) 36 g/dL (31-37) Red Cell Distribution Width 12.3 % (11.5-14.5) 12.5 % (11.5-14.5) Platelet Count 114 x10^3/uL (140-400) 134 x10^3/uL (140-400) Neutrophils (%) (Auto) 27 % (31-73) 30 % (31-73) Lymphocytes (%) (Auto) 57 % (24-48) 60 % (24-48) Monocytes (%) (Auto) 14 % (0-9) 8 % (0-9) Eosinophils (%) (Auto) 1 % (0-3) 2 % (0-3) Basophils (%) (Auto) 1 % (0-3) 1 % (0-3) Neutrophils # (Auto) 1.1 x10^3/uL (1.8-7.7) 1.7 x10^3/uL (1.8-7.7) Lymphocytes # (Auto) 2.4 x10^3/uL (1.0-4.8) 3.3 x10^3/uL (1.0-4.8) Monocytes # (Auto) 0.6 x10^3/uL (0.0-1.1) 0.4 x10^3/uL (0.0-1.1) Eosinophils # (Auto) 0.1 x10^3/uL (0.0-0.7) 0.1 x10^3/uL (0.0-0.7) Basophils # (Auto) 0.0 x10^3/uL (0.0-0.2) 0.0 x10^3/uL (0.0-0.2) Segmented Neutrophils % 18 % (35-66) Band Neutrophils % 25 % (0-9) Lymphocytes % 42 % (24-48) Atypical Lymphocytes % (Manual) 1 % (0-0) Monocytes % 3 % (0-10) Eosinophils % 3 % (0-5) Metamyelocytes % 4 % (0-0) Myelocytes % 4 % (0-0) Platelet Estimate Decreased (ADEQUATE) Anisocytosis Slight Sodium Level 138 mmol/L (136-145) 139 mmol/L (136-145) Potassium Level 3.7 mmol/L (3.5-5.1) 3.6 mmol/L (3.5-5.1) Chloride Level 104 mmol/L (98-107) 103 mmol/L (98-107) Carbon Dioxide Level 26 mmol/L (21-32) 27 mmol/L (21-32) Anion Gap 8 (6-14) 9 (6-14) Blood Urea Nitrogen 8 mg/dL (8-26) 6 mg/dL (8-26) Creatinine 1.0 mg/dL (0.7-1.3) 1.1 mg/dL (0.7-1.3) Estimated GFR (Cockcroft-Gault) 89.6 80.3 Glucose Level 99 mg/dL (70-99) 94 mg/dL (70-99) Calcium Level 8.0 mg/dL (8.5-10.1) 8.2 mg/dL (8.5-10.1) Urine Collection Type Unknown Urine Color Yellow Urine Clarity Clear Urine pH 7.0 Urine Specific [place] 1.015 Urine Protein Negative mg/dL (NEG-TRACE) Urine Glucose (UA) Negative mg/dL (NEG) Urine Ketones (Stick) Negative mg/dL (NEG) Urine Blood Negative (NEG) Urine Nitrite Negative (NEG) Urine Bilirubin Negative (NEG) Urine Urobilinogen Dipstick 0.2 mg/dL (0.2 mg/dL) Urine Leukocyte Esterase Negative (NEG) Urine RBC Occ /HPF (0-2) Urine WBC Occ /HPF (0-4) Urine Bacteria 0 /HPF (0-FEW) Urine Mucus Slight /LPF Laboratory Tests Test 01/30/19 16:00 01/31/19 04:00 Urine Collection Type Unknown Urine Color Yellow Urine Clarity Clear Urine pH 7.0 Urine Specific [place] 1.015 Urine Protein Negative mg/dL (NEG-TRACE) Urine Glucose (UA) Negative mg/dL (NEG) Urine Ketones (Stick) Negative mg/dL (NEG) Urine Blood Negative (NEG) Urine Nitrite Negative (NEG) Urine Bilirubin Negative (NEG) Urine Urobilinogen Dipstick 0.2 mg/dL (0.2 mg/dL) Urine Leukocyte Esterase Negative (NEG) Urine RBC Occ /HPF (0-2) Urine WBC Occ /HPF (0-4) Urine Bacteria 0 /HPF (0-FEW) Urine Mucus Slight /LPF White Blood Count 5.6 x10^3/uL (4.0-11.0) Red Blood Count 4.68 x10^6/uL (4.30-5.70) Hemoglobin 13.6 g/dL (13.0-17.5) Hematocrit 38.4 % (39.0-53.0) Mean Corpuscular Volume 82 fL (79-100) Mean Corpuscular Hemoglobin 29 pg (25-35) Mean Corpuscular Hemoglobin Concent 36 g/dL (31-37) Red Cell Distribution Width 12.5 % (11.5-14.5) Platelet Count 134 x10^3/uL (140-400) Neutrophils (%) (Auto) 30 % (31-73) Lymphocytes (%) (Auto) 60 % (24-48) Monocytes (%) (Auto) 8 % (0-9) Eosinophils (%) (Auto) 2 % (0-3) Basophils (%) (Auto) 1 % (0-3) Neutrophils # (Auto) 1.7 x10^3/uL (1.8-7.7) Lymphocytes # (Auto) 3.3 x10^3/uL (1.0-4.8) Monocytes # (Auto) 0.4 x10^3/uL (0.0-1.1) Eosinophils # (Auto) 0.1 x10^3/uL (0.0-0.7) Basophils # (Auto) 0.0 x10^3/uL (0.0-0.2) Sodium Level 139 mmol/L (136-145) Potassium Level 3.6 mmol/L (3.5-5.1) Chloride Level 103 mmol/L (98-107) Carbon Dioxide Level 27 mmol/L (21-32) Anion Gap 9 (6-14) Blood Urea Nitrogen 6 mg/dL (8-26) Creatinine 1.1 mg/dL (0.7-1.3) Estimated GFR (Cockcroft-Gault) 80.3 Glucose Level 94 mg/dL (70-99) Calcium Level 8.2 mg/dL (8.5-10.1) Medications Current Medications Sodium Chloride 1,000 ml @ 1,000 mls/hr 1X ONCE IV Last administered on 01/28/19at 12:40; Start 01/28/19 at 12:30; Stop 01/28/19 at 13:29; Status DC Piperacillin Sod/ Tazobactam Sod 3.375 gm/Sodium Chloride 50 ml @ 100 mls/hr 1X ONCE IV Last administered on 01/28/19at 12:42; Start 01/28/19 at 12:30; Stop 01/28/19 at 12:59; Status DC Sodium Chloride 1,000 ml @ 1,000 mls/hr 1X ONCE IV Last administered on 01/28/19at 12:44; Start 01/28/19 at 12:45; Stop 01/28/19 at 13:44; Status DC Iohexol (Omnipaque 300 Mg/ml) 75 ml 1X ONCE IV Last administered on 01/28/19at 12:56; Start 01/28/19 at 12:45; Stop 01/28/19 at 12:46; Status DC Info (CONTRAST GIVEN -- Rx MONITORING) 1 each PRN DAILY PRN MC SEE COMMENTS; Start 01/28/19 at 13:00; Stop 01/30/19 at 12:59; Status DC Ondansetron HCl (Zofran) 4 mg PRN Q8HRS PRN IV NAUSEA/VOMITING; Start 01/28/19 at 15:00; Stop 01/29/19 at 14:59; Status DC Morphine Sulfate (Morphine Sulfate) 2 mg PRN Q2HR PRN IV PAIN Last administered on 01/29/19at 06:29; Start 01/28/19 at 15:00; Stop 01/29/19 at 14:59; Status DC Sodium Chloride 1,000 ml @ 100 mls/hr Q10H IV Last administered on 01/29/19at 10:57; Start 01/28/19 at 16:00; Stop 01/29/19 at 15:59; Status DC Enoxaparin Sodium (Lovenox 40mg Syringe) 40 mg Q24H SQ Last administered on 01/30/19at 20:10; Start 01/28/19 at 21:00 Acetaminophen (Tylenol) 650 mg 1X ONCE PO Last administered on 01/29/19at 09:19; Start 01/29/19 at 09:00; Stop 01/29/19 at 09:12; Status DC Morphine Sulfate (Morphine Sulfate) 2 mg PRN Q2HR PRN IV SEVERE PAIN 7-10; Start 01/29/19 at 22:00 Oxycodone/ Acetaminophen (Percocet 5/325) 1 tab PRN Q4HRS PRN PO MODERATE PAIN 4-6; Start 01/29/19 at 22:00 Oxycodone/ Acetaminophen (Percocet 5/325) 2 tab PRN Q4HRS PRN PO SEVERE PAIN 7- 10 Last administered on 01/30/19at 22:44; Start 01/29/19 at 22:00 Acetaminophen (Tylenol) 650 mg PRN Q6HRS PRN PO headache Last administered on 01/30/19at 20:10; Start 01/29/19 at 22:00 Active Scripts Active Reported No Known Medications Prior To Admisstion (Info) Each 1 Each 1X Vitals/I & O Vital Sign - Last 24 Hours 01/30/19 01/30/19 01/30/19 01/30/19 11:00 12:00 15:00 19:25 Temp 97.8 98.7 99.0 97.8 98.7 99.0 Pulse 78 65 68 Resp 16 16 16 B/P (MAP) 105/69 (81) 100/59 (73) 102/62 (75) Pulse Ox 95 95 98 97 O2 Delivery Room Air Room Air Room Air Room Air 01/30/19 01/30/19 01/30/19 01/30/19 20:00 22:44 23:20 23:44 Temp 98.8 98.8 Pulse 69 Resp 20 16 20 B/P (MAP) 94/58 (70) Pulse Ox 97 96 96 O2 Delivery Room Air Room Air Room Air Room Air 01/31/19 01/31/19 01/31/19 03:25 07:00 08:00 Temp 99.4 98.9 99.4 98.9 Pulse 67 82 Resp 18 18 B/P (MAP) 100/62 (75) 116/74 (88) Pulse Ox 95 95 O2 Delivery Room Air Room Air Room Air Intake and Output 0 01/30/19 01/30/19 01/31/19 14:59 22:59 06:59 Intake Total 340 ml Balance 340 ml JIMBO PETERS MD Jan 31, 2019 10:25
[2019-01-31 11:00] VITALS: BP 107/69
--- NOTE | 2019-01-31 13:48 | PDOC3 ---
Discharge Summary Date of Admission: Jan 28, 2019 Date of Discharge: Jan 31, 2019 Follow-Up: 3-5 days Admitting Diagnosis comment: discharge dx Right lower quadrant pain with abnormal imaging (mesenteric and right lower quadrant lymph node) doubt appendicitis, suspect viral syndrome, resolved History of Present Illness History of Present Illness [id number] Patient seen and examined Discussed with his RN Reviewed the chart surgery following 26 min pt exam, chart review, > 50% of time spent with exam, chart review, pt care coordination Vitals Vitals Vital Signs Date Time Temp Pulse Resp B/P (MAP) Pulse Ox O2 Delivery O2 Flow Rate FiO2 01/31/19 08:00 Room Air 01/31/19 07:00 98.9 82 18 116/74 (88) 95 98.9 Physical Exam General: Alert, Oriented X3, Cooperative, No acute distress Heart: Regular rate, Normal S1, Normal S2, No murmurs Lungs: Clear Abdomen: Normal bowel sounds, Soft, No tenderness, No hepatosplenomegaly, Other Extremities: No clubbing, No cyanosis, No edema Skin: No rashes, No breakdown FINAL DIAGNOSIS Problems Medical Problems: (1) Abdominal pain Status: Acute (2) Dehydration Status: Acute Brief Hospital Course Mr. Jacinto is a 28 old [sex] who presented with [abdominal pain ] CONDITION AT DISCHARGE: Improved Discharge Medications Current Medications Sodium Chloride 1,000 ml @ 1,000 mls/hr 1X ONCE IV Last administered on 01/28/19at 12:40; Start 01/28/19 at 12:30; Stop 01/28/19 at 13:29; Status DC Piperacillin Sod/ Tazobactam Sod 3.375 gm/Sodium Chloride 50 ml @ 100 mls/hr 1X ONCE IV Last administered on 01/28/19at 12:42; Start 01/28/19 at 12:30; Stop 01/28/19 at 12:59; Status DC Sodium Chloride 1,000 ml @ 1,000 mls/hr 1X ONCE IV Last administered on 01/28/19at 12:44; Start 01/28/19 at 12:45; Stop 01/28/19 at 13:44; Status DC Iohexol (Omnipaque 300 Mg/ml) 75 ml 1X ONCE IV Last administered on 01/28/19at 12:56; Start 01/28/19 at 12:45; Stop 01/28/19 at 12:46; Status DC Info (CONTRAST GIVEN -- Rx MONITORING) 1 each PRN DAILY PRN MC SEE COMMENTS; Start 01/28/19 at 13:00; Stop 01/30/19 at 12:59; Status DC Ondansetron HCl (Zofran) 4 mg PRN Q8HRS PRN IV NAUSEA/VOMITING; Start 01/28/19 at 15:00; Stop 01/29/19 at 14:59; Status DC Morphine Sulfate (Morphine Sulfate) 2 mg PRN Q2HR PRN IV PAIN Last administered on 01/29/19at 06:29; Start 01/28/19 at 15:00; Stop 01/29/19 at 14:59; Status DC Sodium Chloride 1,000 ml @ 100 mls/hr Q10H IV Last administered on 01/29/19at 10:57; Start 01/28/19 at 16:00; Stop 01/29/19 at 15:59; Status DC Enoxaparin Sodium (Lovenox 40mg Syringe) 40 mg Q24H SQ Last administered on 01/30/19at 20:10; Start 01/28/19 at 21:00 Acetaminophen (Tylenol) 650 mg 1X ONCE PO Last administered on 01/29/19at 09:19; Start 01/29/19 at 09:00; Stop 01/29/19 at 09:12; Status DC Morphine Sulfate (Morphine Sulfate) 2 mg PRN Q2HR PRN IV SEVERE PAIN 7-10; Start 01/29/19 at 22:00 Oxycodone/ Acetaminophen (Percocet 5/325) 1 tab PRN Q4HRS PRN PO MODERATE PAIN 4-6; Start 01/29/19 at 22:00 Oxycodone/ Acetaminophen (Percocet 5/325) 2 tab PRN Q4HRS PRN PO SEVERE PAIN 7- 10 Last administered on 01/30/19at 22:44; Start 01/29/19 at 22:00 Acetaminophen (Tylenol) 650 mg PRN Q6HRS PRN PO headache Last administered on 01/30/19at 20:10; Start 01/29/19 at 22:00 Active Scripts Active Reported No Known Medications Prior To Admisstion (Info) Each 1 Each 1X Vital Signs Vital Signs Date Time Temp Pulse Resp B/P (MAP) Pulse Ox O2 Delivery O2 Flow Rate FiO2 01/31/19 11:00 98.1 80 18 107/69 (82) 97 Room Air 98.1 Labs Laboratory Tests Test 01/30/19 05:10 01/30/19 16:00 01/31/19 04:00 White Blood Count 4.2 x10^3/uL (4.0-11.0) 5.6 x10^3/uL (4.0-11.0) Red Blood Count 4.65 x10^6/uL (4.30-5.70) 4.68 x10^6/uL (4.30-5.70) Hemoglobin 13.5 g/dL (13.0-17.5) 13.6 g/dL (13.0-17.5) Hematocrit 37.8 % (39.0-53.0) 38.4 % (39.0-53.0) Mean Corpuscular Volume 81 fL (79-100) 82 fL (79-100) Mean Corpuscular Hemoglobin 29 pg (25-35) 29 pg (25-35) Mean Corpuscular Hemoglobin Concent 36 g/dL (31-37) 36 g/dL (31-37) Red Cell Distribution Width 12.3 % (11.5-14.5) 12.5 % (11.5-14.5) Platelet Count 114 x10^3/uL (140-400) 134 x10^3/uL (140-400) Neutrophils (%) (Auto) 27 % (31-73) 30 % (31-73) Lymphocytes (%) (Auto) 57 % (24-48) 60 % (24-48) Monocytes (%) (Auto) 14 % (0-9) 8 % (0-9) Eosinophils (%) (Auto) 1 % (0-3) 2 % (0-3) Basophils (%) (Auto) 1 % (0-3) 1 % (0-3) Neutrophils # (Auto) 1.1 x10^3/uL (1.8-7.7) 1.7 x10^3/uL (1.8-7.7) Lymphocytes # (Auto) 2.4 x10^3/uL (1.0-4.8) 3.3 x10^3/uL (1.0-4.8) Monocytes # (Auto) 0.6 x10^3/uL (0.0-1.1) 0.4 x10^3/uL (0.0-1.1) Eosinophils # (Auto) 0.1 x10^3/uL (0.0-0.7) 0.1 x10^3/uL (0.0-0.7) Basophils # (Auto) 0.0 x10^3/uL (0.0-0.2) 0.0 x10^3/uL (0.0-0.2) Segmented Neutrophils % 18 % (35-66) Band Neutrophils % 25 % (0-9) Lymphocytes % 42 % (24-48) Atypical Lymphocytes % (Manual) 1 % (0-0) Monocytes % 3 % (0-10) Eosinophils % 3 % (0-5) Metamyelocytes % 4 % (0-0) Myelocytes % 4 % (0-0) Platelet Estimate Decreased (ADEQUATE) Anisocytosis Slight Sodium Level 138 mmol/L (136-145) 139 mmol/L (136-145) Potassium Level 3.7 mmol/L (3.5-5.1) 3.6 mmol/L (3.5-5.1) Chloride Level 104 mmol/L (98-107) 103 mmol/L (98-107) Carbon Dioxide Level 26 mmol/L (21-32) 27 mmol/L (21-32) Anion Gap 8 (6-14) 9 (6-14) Blood Urea Nitrogen 8 mg/dL (8-26) 6 mg/dL (8-26) Creatinine 1.0 mg/dL (0.7-1.3) 1.1 mg/dL (0.7-1.3) Estimated GFR (Cockcroft-Gault) 89.6 80.3 Glucose Level 99 mg/dL (70-99) 94 mg/dL (70-99) Calcium Level 8.0 mg/dL (8.5-10.1) 8.2 mg/dL (8.5-10.1) Urine Collection Type Unknown Urine Color Yellow Urine Clarity Clear Urine pH 7.0 Urine Specific [place] 1.015 Urine Protein Negative mg/dL (NEG-TRACE) Urine Glucose (UA) Negative mg/dL (NEG) Urine Ketones (Stick) Negative mg/dL (NEG) Urine Blood Negative (NEG) Urine Nitrite Negative (NEG) Urine Bilirubin Negative (NEG) Urine Urobilinogen Dipstick 0.2 mg/dL (0.2 mg/dL) Urine Leukocyte Esterase Negative (NEG) Urine RBC Occ /HPF (0-2) Urine WBC Occ /HPF (0-4) Urine Bacteria 0 /HPF (0-FEW) Urine Mucus Slight /LPF Laboratory Tests Test 01/30/19 16:00 01/31/19 04:00 Urine Collection Type Unknown Urine Color Yellow Urine Clarity Clear Urine pH 7.0 Urine Specific [place] 1.015 Urine Protein Negative mg/dL (NEG-TRACE) Urine Glucose (UA) Negative mg/dL (NEG) Urine Ketones (Stick) Negative mg/dL (NEG) Urine Blood Negative (NEG) Urine Nitrite Negative (NEG) Urine Bilirubin Negative (NEG) Urine Urobilinogen Dipstick 0.2 mg/dL (0.2 mg/dL) Urine Leukocyte Esterase Negative (NEG) Urine RBC Occ /HPF (0-2) Urine WBC Occ /HPF (0-4) Urine Bacteria 0 /HPF (0-FEW) Urine Mucus Slight /LPF White Blood Count 5.6 x10^3/uL (4.0-11.0) Red Blood Count 4.68 x10^6/uL (4.30-5.70) Hemoglobin 13.6 g/dL (13.0-17.5) Hematocrit 38.4 % (39.0-53.0) Mean Corpuscular Volume 82 fL (79-100) Mean Corpuscular Hemoglobin 29 pg (25-35) Mean Corpuscular Hemoglobin Concent 36 g/dL (31-37) Red Cell Distribution Width 12.5 % (11.5-14.5) Platelet Count 134 x10^3/uL (140-400) Neutrophils (%) (Auto) 30 % (31-73) Lymphocytes (%) (Auto) 60 % (24-48) Monocytes (%) (Auto) 8 % (0-9) Eosinophils (%) (Auto) 2 % (0-3) Basophils (%) (Auto) 1 % (0-3) Neutrophils # (Auto) 1.7 x10^3/uL (1.8-7.7) Lymphocytes # (Auto) 3.3 x10^3/uL (1.0-4.8) Monocytes # (Auto) 0.4 x10^3/uL (0.0-1.1) Eosinophils # (Auto) 0.1 x10^3/uL (0.0-0.7) Basophils # (Auto) 0.0 x10^3/uL (0.0-0.2) Sodium Level 139 mmol/L (136-145) Potassium Level 3.6 mmol/L (3.5-5.1) Chloride Level 103 mmol/L (98-107) Carbon Dioxide Level 27 mmol/L (21-32) Anion Gap 9 (6-14) Blood Urea Nitrogen 6 mg/dL (8-26) Creatinine 1.1 mg/dL (0.7-1.3) Estimated GFR (Cockcroft-Gault) 80.3 Glucose Level 94 mg/dL (70-99) Calcium Level 8.2 mg/dL (8.5-10.1) Allergies Allergies Coded Allergies Type Severity Reaction Last Updated Verified No Known Drug Allergies 01/28/19 No Disposition/Orders: D/C to Home Patient Instructions d/c planning 23 min JIMBO PETERS MD Jan 31, 2019 13:48
[2019-01-31] MEDS ORDERED: ACET325T9 PO (13:49)
--- NOTE | 2019-01-31 13:50 | DISCH ---
DISCHARGE INSTRUCTIONS Condition on Discharge Condition on Discharge: Stable Activity After Discharge Activity Instructions for Disc: Resume previous activity Exercise Instruction after Dis: Walk 10 min, 3 x per day Driving Instructions after Dis: Do not drive today Weight Bearing Status after Di: Full weight bearing Diet after Discharge Diet after Discharge: Regular Contacting the DR. after DC Call your doctor for: If your condition worsens JIMBO PETERS MD Jan 31, 2019 13:50
== END 2019-01-31 14:50 | disposition home or self-care (01) | DRG 865 ==
LOC: ER 11:57 → 4 NORTH 14:38 → ER 16:30
PROVIDERS: ADMIT Family Medicine; ATTEND Family Medicine
DX: B34.9 Viral infection, unspecified (principal); N17.0 Acute kidney failure with tubular necrosis; I88.0 Nonspecific mesenteric lymphadenitis; E86.0 Dehydration; Z82.49 Family history of ischemic heart disease and other diseases of the circulatory system; K59.00 Constipation, unspecified
CPT/HCPCS: 36415; 74177; 80048; 80053; 81001; 83690; 85007; 85025; 96365; 96366; J1650; J2270; J2543; J7030; Q9967; 99285-25